=== PATIENT | female | born 1995 | race Caucasian/White ===

== ENCOUNTER 2017-03-11 15:26 | Emergency (ER) | payer MEDICARE, MEDICAID ==
--- NOTE | 2017-03-11 15:29 | EDM.PDOC ---
ED HPI Trauma - General Chief Complaint: Lower Extremity Injury/Pain Stated Complaint: hip pain [id number] Time Seen by Provider: 03/11/17 15:52 Source: Reports: Patient, RN, RN notes reviewed History Limitations: Reports: No limitations - History of Present Illness INITIAL COMMENTS - FREE TEXT/NARRATIVE: POD #20 S/P left total hip replacement just home from post-op rehab stay and felt a pop in posterior left hip and buttock with pain. Patient was able to walk last night, but today pain is much worse. Severity: severe Pain/Injury Location: Reports: lower extremity, left Associated Symptoms: Reports: no other symptoms Allergies/ADRs: Allergies erythromycin base [Erythromycin Base] Allergy (Verified 01/19/17 10:56) Anaphylactic Shock erythromycin ethylsuccinate [From Pediazole] Allergy (Verified 01/19/17 10:56) Anaphylactic Shock latex Allergy (Verified 01/19/17 10:56) Rash Sulfa (Sulfonamide Antibiotics) Allergy (Verified 01/19/17 10:56) Anaphylactic Shock sulfisoxazole acetyl [From Pediazole] Allergy (Verified 01/19/17 10:56) Anaphylactic Shock glutin Allergy (Uncoded 01/19/17 10:56) Nausea and Vomiting tape Allergy (Uncoded 01/19/17 10:56) Rash Home Medications: Ambulatory Orders Ondansetron [Zofran] 4 mg PO Q6H PRN 12/08/14 [Confirmed 01/19/17] Acetaminophen [Tylenol Extra Strength] 500 mg PO ASDIRECTED PRN 01/03/15 [ Confirmed 01/19/17] Naproxen Sodium 220 mg PO DAILY PRN 01/26/16 [Confirmed 01/19/17] Albuterol Sulfate 2.5 mg IH Q4HR PRN 11/26/16 [Confirmed 01/19/17] Baclofen [Baclofen] 10 mg PO PRN 03/11/17 Sertraline HCl [Sertraline HCl] 50 mg PO DAILY 03/11/17 [Confirmed 03/11/17] traMADol [Ultram] 50 mg PO PRN 03/11/17 Past Medical History HEENT History: Reports: Impaired vision, Other (see below) (strabismus) Other HEENT History: wears glasses Cardiovascular History: Reports: None Respiratory History: Reports: Asthma, Bronchitis, recurrent Gastrointestinal History: Reports: Bowel obstruction, Gastritis Genitourinary History: Reports: Pyelonephritis, UTI, recurrent, Other (see below ) (neurogenic bladder) Other Genitourinary History: neurogenic bladder with mitrofenoff procedure 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 Musculoskeletal History: Reports: Arthritis, Osteoarthritis Neurological History: Reports: Cerebral palsy, Seizure Psychiatric History: Reports: None, Anxiety Endocrine/Metabolic History: Reports: None, Obesity/BMI 30+ Hematologic History: Reports: Iron deficiency Immunologic History: Reports: None Oncologic (Cancer) History: Reports: Other (see below) Other Oncologic History: Melanoma Dermatologic History: Reports: Melanoma - Infectious Disease History Infectious Disease History: Reports: Chicken pox, Extended spectrum beta- lactamase (ESBL), Other (see below) Other Infectious Disease History: E coli bacteremia - Past Surgical History HEENT Surgical History: Reports: Eye surgery Respiratory Surgical History: Reports: None GI Surgical History: Reports: Appendectomy, EGD, Other (see below) Other GI Surgeries/Procedures: Surg for bowel obstruction Female Surgical History: Reports: None Musculoskeletal Surgical History: Reports: Other (see below) (left total hip replacement 02/19/17.) Other Musculoskeletal Surgeries/Procedures:: see old chart 4 polly hip rotations Social & Family History - Family History Family Medical History: Noncontributory Endocrine/Metabolic: Reports: Diabetes, type II Oncologic: Reports: Skin - Tobacco Use Smoking Status *Q: Never Smoker Second Hand Smoke Exposure: No - Alcohol Use Days Per Week of Alcohol Use: 0 - Recreational Drug Use Recreational Drug Use: No Review of Systems - Review of Systems Review Of Systems: ROS reveals no pertinent complaints other than HPI. Trauma Exam - Physical Exam Exam: See Below Exam Limited By: No limitations General Appearance: Reports: obese Respiratory Exam: Reports: no respiratory distress, lungs clear, normal breath sounds Cardiovascular: Reports: normal peripheral pulses Extremities: Reports: other (left hip with painful ROM, no bruising or swelling. 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, no motor/sensory deficits, alert , normal mood/affect, oriented x 3 Skin: Reports: Normal color, Warm/dry Course - Vital Signs Last Recorded V/S: Last Vital Signs Temp 37.2 C 03/11/17 15:40 Pulse 103 H 03/11/17 15:40 Resp 16 03/11/17 15:40 BP 144/71 H 03/11/17 15:40 Pulse Ox 99 03/11/17 15:40 - Orders/Labs/Meds Meds: Medications Discontinued Medications Generic Name Dose Route Start Last Admin Trade Name Noam PRN Reason Stop Dose Admin Hydromorphone HCl 1 mg 03/11/17 15:51 03/11/17 15:58 Dilaudid IM 03/11/17 15:52 1 mg ONETIME ONE Administration - Radiology Interpretation Free Text/Narrative:: X-ray left hip and pelvis: No acute findings, per rad report. Departure - Departure Time of Disposition: 17:02 Disposition: Home, Self-Care 01 Condition: good Clinical Impression: Acute postoperative pain of left hip Instructions: Hip Pain, Total Hip Replacement, Care After, [id number] Forms: ED Department Discharge Additional Instructions: Continue Tramadol as prescribed for pain. Follow up with your orthopedic surgeon if pain is not improved in 1 to 2 days.
[2017-03-11 15:46] VITALS: BP 144/71
[2017-03-11] MEDS ORDERED: HYDROmorphone 1 MG/ML Syringe IM ONE (15:51)
== END 2017-03-11 17:10 | disposition home or self-care (01) ==
LOC: DL.ED 15:26
DX: G89.18 Other acute postprocedural pain (principal); M25.552 Pain in left hip; J45.909 Unspecified asthma, uncomplicated; F41.9 Anxiety disorder, unspecified; E66.9 Obesity, unspecified; Z68.30 Body mass index [BMI] 30.0-30.9, adult; Z88.1 Allergy status to other antibiotic agents; Z88.2 Allergy status to sulfonamides; Z91.040 Latex allergy status; Z88.8 Allergy status to other drugs, medicaments and biological substances; Z87.440 Personal history of urinary (tract) infections; Z90.49 Acquired absence of other specified parts of digestive tract; Z98.890 Other specified postprocedural states
CPT/HCPCS: 73502; 96372; 99283; J1170; 99284

== ENCOUNTER 2017-07-28 22:59 | Emergency (ER) | payer MEDICARE, MEDICAID ==
--- NOTE | 2017-07-28 23:22 | EDM.PDOC ---
ED HPI GENERAL MEDICAL PROBLEM - General Chief Complaint: Genitourinary Problem Stated Complaint: UTI [id number] Time Seen by Provider: 07/28/17 23:20 Source of Information: Reports: Patient History Limitations: Reports: No Limitations - History of Present Illness INITIAL COMMENTS - FREE TEXT/NARRATIVE: 2 days h/o dysuria with h/o UTI. Right Lower Back Pain Score (Numeric/FACES): 6 - Related Data Allergies Allergy/AdvReac Type Severity Reaction Status Date / Time erythromycin base Allergy Anaphylactic Verified 07/28/17 23:25 [Erythromycin Base] Shock erythromycin ethylsuccinate Allergy Anaphylactic Verified 07/28/17 23:25 [From Pediazole] Shock latex Allergy Rash Verified 07/28/17 23:25 Sulfa (Sulfonamide Allergy Anaphylactic Verified 07/28/17 23:25 Antibiotics) Shock sulfisoxazole acetyl Allergy Anaphylactic Verified 07/28/17 23:25 [From Pediazole] Shock glutin Allergy Nausea and Uncoded 07/28/17 23:25 Vomiting tape Allergy Rash Uncoded 07/28/17 23:25 Home Meds: Home Meds Ondansetron [Zofran] 4 mg PO Q6H PRN 12/08/14 [History] Acetaminophen [Tylenol Extra Strength] 500 mg PO ASDIRECTED PRN 01/03/15 [ History] Naproxen Sodium 220 mg PO DAILY PRN 01/26/16 [History] Albuterol Sulfate 2.5 mg IH Q4HR PRN 11/26/16 [History] Baclofen [Baclofen] 10 mg PO QID PRN 03/11/17 [History] Sertraline HCl [Sertraline HCl] 50 mg PO DAILY 03/11/17 [History] traMADol [Ultram] 50 mg PO DAILY PRN 03/11/17 [History] Past Medical History HEENT History: Reports: Impaired Vision, Other (See Below) Other HEENT History: wears glasses Cardiovascular History: Reports: None Respiratory History: Reports: Asthma, Bronchitis, Recurrent Gastrointestinal History: Reports: Bowel Obstruction, Gastritis Genitourinary History: Reports: Pyelonephritis, UTI, Recurrent, Other (See Below ) Other Genitourinary History: neurogenic bladder with mitrofenoff procedure 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 Musculoskeletal History: Reports: Arthritis, Osteoarthritis Neurological History: Reports: Cerebral Palsy, Seizure Psychiatric History: Reports: None, Anxiety Endocrine/Metabolic History: Reports: None, Obesity/BMI 30+ Hematologic History: Reports: Iron Deficiency Immunologic History: Reports: None Oncologic (Cancer) History: Reports: Other (See Below) Other Oncologic History: Melanoma Dermatologic History: Reports: Melanoma - Infectious Disease History Infectious Disease History: Reports: Chicken Pox, Extended Spectrum Beta- Lactamase (ESBL), Other (See Below) Other Infectious Disease History: E coli bacteremia - Past Surgical History HEENT Surgical History: Reports: Eye Surgery GI Surgical History: Reports: Appendectomy, EGD, Other (See Below) Musculoskeletal Surgical History: Reports: Other (See Below) Social & Family History - Family History Family Medical History: Noncontributory Endocrine/Metabolic: Reports: Diabetes, type II Oncologic: Reports: Skin - Tobacco Use Smoking Status *Q: Never Smoker Second Hand Smoke Exposure: No - Caffeine Use Caffeine Use: Reports: Coffee, Soda - Alcohol Use Days Per Week of Alcohol Use: 0 - Recreational Drug Use Recreational Drug Use: No ED ROS GENERAL - Review of Systems Review Of Systems: ROS reveals no pertinent complaints other than HPI. ED EXAM, RENAL/ - Physical Exam Exam: See Below Exam Limited By: No Limitations General Appearance: Alert, WD/WN, Mild Distress, Other (discomfort) Ears: Hearing Grossly Normal Throat/Mouth: Normal Voice, No Airway Compromise Head: Atraumatic Neck: Non-Tender, Full Range of Motion Respiratory/Chest: No Respiratory Distress Cardiovascular: Regular Rate, Rhythm GI/Abdominal: Soft, Non-Tender Neurological: Alert, Oriented, Normal Cognition Psychiatric: Normal Affect, Normal Mood Skin Exam: Warm, Dry, Normal Color Lymphatic: No Adenopathy Course - Vital Signs Last Recorded V/S: Last Vital Signs Temp 36.0 C 07/28/17 23:18 Pulse 105 H 07/28/17 23:18 Resp 19 07/28/17 23:18 BP 142/87 H 07/28/17 23:18 Pulse Ox 99 07/28/17 23:18 - Orders/Labs/Meds Orders: Active Orders 24 hr Category Date Time Status Nitrofurantoin [place]/Macrocryst [Macrobid] Med 07/29/17 00:37 Once 100 mg PO ONETIME ONE Phenazopyridine [Urinary Pain Relief] Med 07/29/17 00:37 Once 95 mg PO ONETIME ONE Labs: Laboratory Tests 07/28/17 07/28/17 Range/Units 23:12 23:12 Urine Color Yellow (YELLOW) Urine Appearance Slightly cloudy (CLEAR) Urine pH 7.0 (5.0-9.0) Ur Specific [place] <= 1.005 (1.005-1.030) Urine Protein Negative (NEGATIVE) Urine Glucose (UA) Negative (NEGATIVE) Urine Ketones Negative (NEGATIVE) Urine Occult Blood Negative (NEGATIVE) Urine Nitrite Positive H (NEGATIVE) Urine Bilirubin Negative (NEGATIVE) Urine Urobilinogen 0.2 (0.2-1.0) mg/dL Ur Leukocyte Esterase Negative (NEGATIVE) Urine RBC Not seen /HPF Urine WBC 0-5 (0-5/HPF) /HPF Ur Epithelial Cells Rare /HPF Urine Bacteria Few (0-FEW/HPF) /HPF Urine HCG, Qual Negative - Re-Assessments/Exams Free Text/Narrative Re-Assessment/Exam: 07/29/17 00:38 results discussed with pt Departure - Departure Time of Disposition: 00:38 Disposition: Home, Self-Care 01 Condition: Good Clinical Impression: UTI, Urinary tract infectious disease - Discharge Information Instructions: Urinary Tract Infection, Adult, [id number] Forms: ED Department Discharge Additional Instructions: 1) drink lots of liquids 2) follow up with family doctor rx given; macrobid 100mg bid x 20 pyridium 100mg tid prn x 12 - My Orders Last 24 Hours: My Active Orders 07/29/17 00:37 Nitrofurantoin [place]/Macrocryst [Macrobid] 100 mg PO ONETIME ONE Phenazopyridine [Urinary Pain Relief] 95 mg PO ONETIME ONE - Assessment/Plan Last 24 Hours: My Active Orders 07/29/17 00:37 Nitrofurantoin [place]/Macrocryst [Macrobid] 100 mg PO ONETIME ONE Phenazopyridine [Urinary Pain Relief] 95 mg PO ONETIME ONE
[2017-07-28 23:25] VITALS: BP 142/87
[2017-07-29] MEDS ORDERED: Nitrofurantoin Monohydrate/Macrocrystalline 100 MG Cap PO ONE (00:37)
[2017-07-29] MEDS ORDERED: Phenazopyridine 95 MG Tab PO ONE (00:37)
== END 2017-07-29 00:56 | disposition home or self-care (01) ==
LOC: DL.ED 22:59
DX: N39.0 Urinary tract infection, site not specified (principal); J45.909 Unspecified asthma, uncomplicated; M19.90 Unspecified osteoarthritis, unspecified site; M81.0 Age-related osteoporosis without current pathological fracture; G80.9 Cerebral palsy, unspecified; F41.9 Anxiety disorder, unspecified; E66.9 Obesity, unspecified; Z85.820 Personal history of malignant melanoma of skin; Z90.49 Acquired absence of other specified parts of digestive tract; Z79.899 Other long term (current) drug therapy; Z88.1 Allergy status to other antibiotic agents; Z88.2 Allergy status to sulfonamides; Z91.040 Latex allergy status; Z91.048 Other nonmedicinal substance allergy status; Z68.30 Body mass index [BMI] 30.0-30.9, adult
CPT/HCPCS: 81001; 81025; 99283; A9270

== ENCOUNTER 2017-09-15 23:56 | Emergency (ER) | payer MEDICARE, MEDICAID ==
[2017-09-15] MEDS ORDERED: Nitrofurantoin Monohydrate/Macrocrystalline 100 MG Cap PO ONE (23:57)
[2017-09-16 00:06] VITALS: BP 161/82
[2017-09-16 01:13] LABS: CHLORIDE,CL 101 mmol/L (101-111); SODIUM,NA 133 mmol/L (135-145)
--- NOTE | 2017-09-16 01:18 | EDM.PDOC ---
ED HPI GENERAL MEDICAL PROBLEM - General Chief Complaint: Genitourinary Problem Stated Complaint: POSSIBLE UTI Time Seen by Provider: 09/16/17 00:32 Source of Information: Reports: Patient History Limitations: Reports: No Limitations - History of Present Illness INITIAL COMMENTS - FREE TEXT/NARRATIVE: c/o intermittent chills and bladder pain. Hx CP with neurogenic bladder, supra pubic intermittent self cath. Notes urine more concentrated and "gunky". Hx UTI and feels same as in past. 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) Bladder Pain Score (Numeric/FACES): 7 - Related Data Allergies Allergy/AdvReac Type Severity Reaction Status Date / Time erythromycin base Allergy Anaphylactic Verified 07/28/17 23:25 [Erythromycin Base] Shock erythromycin ethylsuccinate Allergy Anaphylactic Verified 07/28/17 23:25 [From Pediazole] Shock latex Allergy Rash Verified 07/28/17 23:25 Sulfa (Sulfonamide Allergy Anaphylactic Verified 07/28/17 23:25 Antibiotics) Shock sulfisoxazole acetyl Allergy Anaphylactic Verified 07/28/17 23:25 [From Pediazole] Shock glutin Allergy Nausea and Uncoded 07/28/17 23:25 Vomiting tape Allergy Rash Uncoded 07/28/17 23:25 Home Meds: Home Meds Ondansetron [Zofran] 4 mg PO Q6H PRN 12/08/14 [History] Acetaminophen [Tylenol Extra Strength] 500 mg PO ASDIRECTED PRN 01/03/15 [ History] Naproxen Sodium 220 mg PO DAILY PRN 01/26/16 [History] Albuterol Sulfate 2.5 mg IH Q4HR PRN 11/26/16 [History] Baclofen [Baclofen] 10 mg PO QID PRN 03/11/17 [History] Sertraline HCl [Sertraline HCl] 50 mg PO DAILY 03/11/17 [History] traMADol [Ultram] 50 mg PO DAILY PRN 03/11/17 [History] Past Medical History HEENT History: Reports: Impaired Vision, Other (See Below) Other HEENT History: wears glasses Cardiovascular History: Reports: None Respiratory History: Reports: Asthma, Bronchitis, Recurrent Gastrointestinal History: Reports: Bowel Obstruction, Gastritis Genitourinary History: Reports: Pyelonephritis, UTI, Recurrent, Other (See Below ) Other Genitourinary History: neurogenic bladder with mitrofenoff procedure 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 Musculoskeletal History: Reports: Arthritis, Osteoarthritis Neurological History: Reports: Cerebral Palsy, Seizure Psychiatric History: Reports: None, Anxiety Endocrine/Metabolic History: Reports: None, Obesity/BMI 30+ Hematologic History: Reports: Iron Deficiency Immunologic History: Reports: None Oncologic (Cancer) History: Reports: Other (See Below) Other Oncologic History: Melanoma Dermatologic History: Reports: Melanoma - Infectious Disease History Infectious Disease History: Reports: Chicken Pox, Extended Spectrum Beta- Lactamase (ESBL), Other (See Below) Other Infectious Disease History: E coli bacteremia - Past Surgical History HEENT Surgical History: Reports: Eye Surgery GI Surgical History: Reports: Appendectomy, EGD, Other (See Below) Musculoskeletal Surgical History: Reports: Other (See Below) Social & Family History - Family History Family Medical History: Noncontributory Endocrine/Metabolic: Reports: Diabetes, type II Oncologic: Reports: Skin - Tobacco Use Smoking Status *Q: Never Smoker Second Hand Smoke Exposure: No - Caffeine Use Caffeine Use: Reports: Soda - Alcohol Use Days Per Week of Alcohol Use: 0 - Recreational Drug Use Recreational Drug Use: No ED ROS GENERAL - Review of Systems Review Of Systems: See Below Constitutional: Reports: Chills HEENT: Reports: No Symptoms Respiratory: Reports: No Symptoms Cardiovascular: Reports: No Symptoms GI/Abdominal: Reports: Abdominal Pain : Reports: Frequency, Pain, Urinary Retention (chronic), Other (10weeks ). Denies: Flank Pain ED EXAM, RENAL/ - Physical Exam Exam: See Below Exam Limited By: Physical Impairment General Appearance: Alert, No Apparent Distress Throat/Mouth: Normal Voice Head: Atraumatic, Normocephalic Neck: Normal Inspection Respiratory/Chest: No Respiratory Distress, Lungs Clear GI/Abdominal: Soft Neurological: Alert, Oriented, Normal Cognition Psychiatric: Normal Affect, Normal Mood Skin Exam: Warm, Dry, Intact, Normal Color Course - Vital Signs Last Recorded V/S: Last Vital Signs Temp 98.9 F 09/16/17 00:05 Pulse 98 09/16/17 00:05 Resp 16 09/16/17 00:05 BP 161/82 H 09/16/17 00:05 Pulse Ox 98 09/16/17 00:05 - Orders/Labs/Meds Orders: Active Orders 24 hr Category Date Time Status CULTURE URINE [RM] Stat Lab 09/16/17 00:01 Received Labs: Laboratory Tests 09/16/17 09/16/17 09/16/17 Range/Units 00:01 00:43 00:43 WBC 9.1 (5.0-10.0) 10^3/uL RBC 4.69 (4.2-5.4) 10^6/uL Hgb 14.3 (12.0-16.0) g/dL Hct 42.0 (37.0-47.0) % MCV 89.6 (80-100) fL MCH 30.5 (27.0-34.0) pg MCHC 34.0 (33.0-35.0) g/dL Plt Count 227 (150-450) 10^3/uL Neut % (Auto) 58.1 (42.2-75.2) % Lymph % (Auto) 32.0 (20.5-50.1) % [place] % (Auto) 8.3 H (2-8) % Eos % (Auto) 1.4 (1.0-3.0) % Baso % (Auto) 0.2 (0.0-1.0) % Sodium 133 L (135-145) mmol/L Potassium 3.6 (3.6-5.0) mmol/L Chloride 101 (101-111) mmol/L Carbon Dioxide 24.0 (21.0-31.0) mmol/L Anion Gap 11.6 BUN 7 (7-18) mg/dL Creatinine 0.5 L (0.6-1.3) mg/dL Est Cr Clr Drug Dosing 147.93 mL/min Estimated GFR (MDRD) > 60 BUN/Creatinine Ratio 14.00 Glucose 101 (74-105) mg/dL Lactic Acid (0.5-2.2) mmol/L Calcium 9.3 (8.4-10.2) mg/dl Total Bilirubin 0.6 (0.2-1.0) mg/dL AST 20 (10-42) IU/L ALT 14 (10-60) IU/L Alkaline Phosphatase 33 L (42-121) IU/L Total Protein 6.9 (6.7-8.2) g/dl Albumin 4.2 (3.2-5.5) g/dl Globulin 2.7 Albumin/Globulin Ratio 1.56 Urine Color [place] (YELLOW) Urine Appearance Turbid (CLEAR) Urine pH 5.0 (5.0-9.0) Ur Specific [place] 1.020 (1.005-1.030) Urine Protein 100 H (NEGATIVE) Urine Glucose (UA) 250 H (NEGATIVE) Urine Ketones Trace H (NEGATIVE) Urine Occult Blood Trace-lysed H (NEGATIVE) Urine Nitrite Positive H (NEGATIVE) Urine Bilirubin Small H (NEGATIVE) Urine Urobilinogen 4.0 H (0.2-1.0) mg/dL Ur Leukocyte Esterase Large H (NEGATIVE) Urine RBC 10-20 H /HPF Urine WBC 40-50 H (0-5/HPF) /HPF Ur Epithelial Cells Few /HPF Urine Bacteria Few (0-FEW/HPF) /HPF Urine Mucus Many H /LPF 09/16/17 Range/Units 00:43 WBC (5.0-10.0) 10^3/uL RBC (4.2-5.4) 10^6/uL Hgb (12.0-16.0) g/dL Hct (37.0-47.0) % MCV (80-100) fL MCH (27.0-34.0) pg MCHC (33.0-35.0) g/dL Plt Count (150-450) 10^3/uL Neut % (Auto) (42.2-75.2) % Lymph % (Auto) (20.5-50.1) % [place] % (Auto) (2-8) % Eos % (Auto) (1.0-3.0) % Baso % (Auto) (0.0-1.0) % Sodium (135-145) mmol/L Potassium (3.6-5.0) mmol/L Chloride (101-111) mmol/L Carbon Dioxide (21.0-31.0) mmol/L Anion Gap BUN (7-18) mg/dL Creatinine (0.6-1.3) mg/dL Est Cr Clr Drug Dosing mL/min Estimated GFR (MDRD) BUN/Creatinine Ratio Glucose (74-105) mg/dL Lactic Acid 1.2 (0.5-2.2) mmol/L Calcium (8.4-10.2) mg/dl Total Bilirubin (0.2-1.0) mg/dL AST (10-42) IU/L ALT (10-60) IU/L Alkaline Phosphatase (42-121) IU/L Total Protein (6.7-8.2) g/dl Albumin (3.2-5.5) g/dl Globulin Albumin/Globulin Ratio Urine Color (YELLOW) Urine Appearance (CLEAR) Urine pH (5.0-9.0) Ur Specific [place] (1.005-1.030) Urine Protein (NEGATIVE) Urine Glucose (UA) (NEGATIVE) Urine Ketones (NEGATIVE) Urine Occult Blood (NEGATIVE) Urine Nitrite (NEGATIVE) Urine Bilirubin (NEGATIVE) Urine Urobilinogen (0.2-1.0) mg/dL Ur Leukocyte Esterase (NEGATIVE) Urine RBC /HPF Urine WBC (0-5/HPF) /HPF Ur Epithelial Cells /HPF Urine Bacteria (0-FEW/HPF) /HPF Urine Mucus /LPF Departure - Departure Time of Disposition: : Disposition: Home, Self-Care 01 Condition: Good Clinical Impression: UTI, Urinary tract infectious disease - Discharge Information Instructions: Urinary Tract Infection, Adult, [id number] Forms: ED Department Discharge Additional Instructions: Macrobid 100mg one twice daily for 10 days increase fluids follow up with primary care this week - My Orders Last 24 Hours: My Active Orders 09/16/17 00:01 CULTURE URINE [RM] Stat - Assessment/Plan Last 24 Hours: My Active Orders 09/16/17 00:01 CULTURE URINE [RM] Stat
[2017-09-16] MEDS ORDERED: Nitrofurantoin Monohydrate/Macrocrystalline 100 MG Cap ONE (01:22)
== END 2017-09-16 01:25 | disposition home or self-care (01) ==
LOC: DL.ED 23:56
DX: N39.0 Urinary tract infection, site not specified (principal); Z88.1 Allergy status to other antibiotic agents; Z91.040 Latex allergy status; Z88.2 Allergy status to sulfonamides; Z79.899 Other long term (current) drug therapy
CPT/HCPCS: 36415; 80053; 81001; 83605; 85025; 87086; 87088; 87186; 99283; A9270-GY

== ENCOUNTER 2017-09-27 18:20 | Emergency (ER) | payer MEDICARE, MEDICAID ==
[2017-09-27 19:01] LABS: CHLORIDE,CL 103 mmol/L (101-111); SODIUM,NA 137 mmol/L (135-145)
--- NOTE | 2017-09-27 19:03 | EDM.PDOC ---
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 had few weeks ago and recent U.S normal. started pink discharge this am, turned brown then tonight bloody. on first pad presently. denies cramps, no pain anywhere. - Related Data Allergies Allergy/AdvReac Type Severity Reaction Status Date / Time erythromycin base Allergy Anaphylactic Verified 09/27/17 18:32 [Erythromycin Base] Shock erythromycin ethylsuccinate Allergy Anaphylactic Verified 09/27/17 18:32 [From Pediazole] Shock latex Allergy Rash Verified 09/27/17 18:32 Sulfa (Sulfonamide Allergy Anaphylactic Verified 09/27/17 18:32 Antibiotics) Shock sulfisoxazole acetyl Allergy Anaphylactic Verified 09/27/17 18:32 [From Pediazole] Shock glutin Allergy Nausea and Uncoded 09/27/17 18:32 Vomiting tape Allergy Rash Uncoded 09/27/17 18:32 Home Meds: Home Meds Ondansetron [Zofran] 4 mg PO Q6H PRN 12/08/14 [History] Acetaminophen [Tylenol Extra Strength] 500 mg PO ASDIRECTED PRN 01/03/15 [ History] Naproxen Sodium 220 mg PO DAILY PRN 01/26/16 [History] Albuterol Sulfate 2.5 mg IH Q4HR PRN 11/26/16 [History] Baclofen [Baclofen] 10 mg PO QID PRN 03/11/17 [History] Sertraline HCl [Sertraline HCl] 50 mg PO DAILY 03/11/17 [History] traMADol [Ultram] 50 mg PO DAILY PRN 03/11/17 [History] Acetaminophen [Tylenol Arthritis Pain] 09/27/17 [History] Prenat Vit Comb.10/Iron/Fa/Dha [Vitafol-OB + DHA] 09/27/17 [History] Past Medical History HEENT History: Reports: Impaired Vision, Other (See Below) Other HEENT History: wears glasses Cardiovascular History: Reports: None Respiratory History: Reports: Asthma, Bronchitis, Recurrent Gastrointestinal History: Reports: Bowel Obstruction, Gastritis Genitourinary History: Reports: Pyelonephritis, UTI, Recurrent, Other (See Below ) Other Genitourinary History: neurogenic bladder with mitrofenoff procedure 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 History: Reports: None Musculoskeletal History: Reports: Arthritis, Osteoarthritis Neurological History: Reports: Cerebral Palsy, Seizure Psychiatric History: Reports: None, Anxiety Endocrine/Metabolic History: Reports: None Hematologic History: Reports: Iron Deficiency Immunologic History: Reports: None Oncologic (Cancer) History: Reports: Other (See Below) Other Oncologic History: Melanoma Dermatologic History: Reports: Melanoma - Infectious Disease History Infectious Disease History: Reports: Chicken Pox, Extended Spectrum Beta- Lactamase (ESBL), Other (See Below) Other Infectious Disease History: E coli bacteremia - Past Surgical History HEENT Surgical History: Reports: Eye Surgery, Myringotomy w Tube(s) GI Surgical History: Reports: Appendectomy, EGD, Other (See Below) Other GI Surgeries/Procedures: Catheter Navel Musculoskeletal Surgical History: Reports: Hip Replacement, Other (See Below) Other Musculoskeletal Surgeries/Procedures:: Multiple hip surgeries Social & Family History - Family History Family Medical History: Noncontributory Endocrine/Metabolic: Reports: Diabetes, type II Oncologic: Reports: Skin - Tobacco Use Smoking Status *Q: Never Smoker Second Hand Smoke Exposure: No - Caffeine Use Caffeine Use: Reports: None - Alcohol Use Days Per Week of Alcohol Use: 0 - Recreational Drug Use Recreational Drug Use: No ED ROS GENERAL - Review of Systems Review Of Systems: ROS reveals no pertinent complaints other than HPI. ED EXAM - Physical Exam Exam: See Below Exam Limited By: No Limitations General Appearance: Alert, WD/WN, No Apparent Distress Ears: Hearing Grossly Normal Throat/Mouth: Normal Voice, No Airway Compromise Head: Atraumatic Neck: Non-Tender, Full Range of Motion Respiratory/Chest: No Respiratory Distress Cardiovascular: Regular Rate, Rhythm GI/Abdominal Exam: Soft, Non-Tender Neurological: Alert, Oriented, Normal Cognition, Normal Gait, No Motor/Sensory Deficits Psychiatric: Normal Affect, Normal Mood Skin Exam: Warm, Dry, Normal Color Lymphatic: No Adenopathy Course - Vital Signs Last Recorded V/S: Last Vital Signs Temp 37.2 C 09/27/17 20:13 Pulse 107 H 09/27/17 20:13 Resp 18 09/27/17 20:13 BP 131/78 09/27/17 20:13 Pulse Ox 96 09/27/17 20:13 - Orders/Labs/Meds Orders: Active Orders 24 hr Category Date Time Status OB Ltd 1 or More Fetus [US] Urgent Exams 09/27/17 20:20 Taken CULTURE URINE [RM] Stat Lab 09/27/17 18:31 Received Acetaminophen/HYDROcodone [Salvo 325-10 MG] Med 09/27/17 21:34 Once 1 tab PO ONETIME ONE Labs: Laboratory Tests 09/27/17 09/27/17 09/27/17 Range/Units 18:31 18:35 18:35 WBC 8.7 (5.0-10.0) 10^3/uL RBC 4.74 (4.2-5.4) 10^6/uL Hgb 14.2 (12.0-16.0) g/dL Hct 41.7 (37.0-47.0) % MCV 88.0 (80-100) fL MCH 30.0 (27.0-34.0) pg MCHC 34.1 (33.0-35.0) g/dL Plt Count 212 (150-450) 10^3/uL Neut % (Auto) 59.4 (42.2-75.2) % Lymph % (Auto) 31.9 (20.5-50.1) % [place] % (Auto) 7.5 (2-8) % Eos % (Auto) 1.0 (1.0-3.0) % Baso % (Auto) 0.2 (0.0-1.0) % Sodium (135-145) mmol/L Potassium (3.6-5.0) mmol/L Chloride (101-111) mmol/L Carbon Dioxide (21.0-31.0) mmol/L Anion Gap BUN (7-18) mg/dL Creatinine (0.6-1.3) mg/dL Est Cr Clr Drug Dosing mL/min Estimated GFR (MDRD) BUN/Creatinine Ratio Glucose (74-105) mg/dL Calcium (8.4-10.2) mg/dl Total Bilirubin (0.2-1.0) mg/dL AST (10-42) IU/L ALT (10-60) IU/L Alkaline Phosphatase (42-121) IU/L Total Protein (6.7-8.2) g/dl Albumin (3.2-5.5) g/dl Globulin Albumin/Globulin Ratio HCG, Quant > 1371 H (0-25) mIU/ml Beta HCG, Quant 12325 mIU/ml Urine Color Yellow (YELLOW) Urine Appearance Slightly cloudy (CLEAR) Urine pH 6.5 (5.0-9.0) Ur Specific [place] 1.015 (1.005-1.030) Urine Protein Negative (NEGATIVE) Urine Glucose (UA) Negative (NEGATIVE) Urine Ketones Negative (NEGATIVE) Urine Occult Blood Trace-lysed H (NEGATIVE) Urine Nitrite Negative (NEGATIVE) Urine Bilirubin Negative (NEGATIVE) Urine Urobilinogen 0.2 (0.2-1.0) mg/dL Ur Leukocyte Esterase Negative (NEGATIVE) Urine RBC 0-5 /HPF Urine WBC 0-5 (0-5/HPF) /HPF Ur Epithelial Cells Few /HPF Urine Bacteria Many H (0-FEW/HPF) /HPF Urine Mucus Few H /LPF 09/27/ Range/Units 18:35 WBC (5.0-10.0) 10^3/uL RBC (4.2-5.4) 10^6/uL Hgb (12.0-16.0) g/dL Hct (37.0-47.0) % MCV (80-100) fL MCH (27.0-34.0) pg MCHC (33.0-35.0) g/dL Plt Count (150-450) 10^3/uL Neut % (Auto) (42.2-75.2) % Lymph % (Auto) (20.5-50.1) % [place] % (Auto) (2-8) % Eos % (Auto) (1.0-3.0) % Baso % (Auto) (0.0-1.0) % Sodium 137 (135-145) mmol/L Potassium 3.3 L (3.6-5.0) mmol/L Chloride 103 (101-111) mmol/L Carbon Dioxide 20.0 L (21.0-31.0) mmol/L Anion Gap 17.3 BUN 10 (7-18) mg/dL Creatinine 0.7 (0.6-1.3) mg/dL Est Cr Clr Drug Dosing 107.01 mL/min Estimated GFR (MDRD) > 60 BUN/Creatinine Ratio 14.28 Glucose 116 H (74-105) mg/dL Calcium 9.5 (8.4-10.2) mg/dl Total Bilirubin 0.4 (0.2-1.0) mg/dL AST 25 (10-42) IU/L ALT 17 (10-60) IU/L Alkaline Phosphatase 35 L (42-121) IU/L Total Protein 7.3 (6.7-8.2) g/dl Albumin 4.1 (3.2-5.5) g/dl Globulin 3.2 Albumin/Globulin Ratio 1.28 HCG, Quant (0-25) mIU/ml Beta HCG, Quant mIU/ml Urine Color (YELLOW) Urine Appearance (CLEAR) Urine pH (5.0-9.0) Ur Specific [place] (1.005-1.030) Urine Protein (NEGATIVE) Urine Glucose (UA) (NEGATIVE) Urine Ketones (NEGATIVE) Urine Occult Blood (NEGATIVE) Urine Nitrite (NEGATIVE) Urine Bilirubin (NEGATIVE) Urine Urobilinogen (0.2-1.0) mg/dL Ur Leukocyte Esterase (NEGATIVE) Urine RBC /HPF Urine WBC (0-5/HPF) /HPF Ur Epithelial Cells /HPF Urine Bacteria (0-FEW/HPF) /HPF Urine Mucus /LPF Meds: Medications Discontinued Medications Generic Name Dose Route Start Last Admin Trade Name Jarethq PRN Reason Stop Dose Admin Acetaminophen 325 mg 09/27/17 21:03 09/27/17 21:16 Tylenol PO 09/27/17 21:04 325 mg NOW ONE Administration - Re-Assessments/Exams Free Text/Narrative Re-Assessment/Exam: 09/27/17 20:12 re-exam; pt has no c/o except soaking one pad. case discussed with Dr Rincon who rec' OB-US to check foetal viability. 09/27/17 21:34 results discussed with pt & family. Departure - Departure Time of Disposition: 21:35 Disposition: Home, Self-Care 01 Condition: Good Clinical Impression: Incomplete - Discharge Information Instructions: Miscarriage, [id number] Forms: ED Department Discharge Additional Instructions: 1) rest as much as possible 2) notify OB doctor tomorrow 3) recheck as needed - My Orders Last 24 Hours: My Active Orders 09/27/17 18:31 CULTURE URINE [RM] Stat 09/27/17 20:20 OB Ltd 1 or More Fetus [US] Urgent 09/27/17 21:34 Acetaminophen/HYDROcodone [Salvo 325-10 MG] 1 tab PO ONETIME ONE - Assessment/Plan Last 24 Hours: My Active Orders 09/27/17 18:31 CULTURE URINE [RM] Stat 09/27/17 20:20 OB Ltd 1 or More Fetus [US] Urgent 09/27/17 21:34 Acetaminophen/HYDROcodone [Salvo 325-10 MG] 1 tab PO ONETIME ONE
[2017-09-27 20:14] VITALS: BP 131/78
[2017-09-27] MEDS ORDERED: Acetaminophen 325 MG Tab PO ONE (21:03)
[2017-09-27] MEDS ORDERED: Acetaminophen/HYDROcodone 325-10 MG Tab PO ONE (21:34)
== END 2017-09-27 21:47 | disposition home or self-care (01) ==
LOC: DL.ED 18:20
DX: O03.4 Incomplete spontaneous abortion without complication (principal); O99.511 Diseases of the respiratory system complicating pregnancy, first trimester; J45.909 Unspecified asthma, uncomplicated; Z79.899 Other long term (current) drug therapy; Z88.1 Allergy status to other antibiotic agents; Z88.2 Allergy status to sulfonamides; Z88.8 Allergy status to other drugs, medicaments and biological substances; Z91.048 Other nonmedicinal substance allergy status; Z91.040 Latex allergy status; Z3A.09 9 weeks gestation of pregnancy
CPT/HCPCS: 36415; 76815; 80053; 81001; 84702; 85025; 87086; 99284; A9270; 99283

== ENCOUNTER 2017-09-29 00:35 | Emergency (ER) | payer MEDICARE, MEDICAID ==
--- NOTE | 2017-09-29 00:44 | EDM.PDOC ---
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 Lower Back Pain Score (Numeric/FACES): 8 - Related Data Allergies Allergy/AdvReac Type Severity Reaction Status Date / Time erythromycin base Allergy Anaphylactic Verified 09/27/17 18:32 [Erythromycin Base] Shock erythromycin ethylsuccinate Allergy Anaphylactic Verified 09/27/17 18:32 [From Pediazole] Shock latex Allergy Rash Verified 09/27/17 18:32 Sulfa (Sulfonamide Allergy Anaphylactic Verified 09/27/17 18:32 Antibiotics) Shock sulfisoxazole acetyl Allergy Anaphylactic Verified 09/27/17 18:32 [From Pediazole] Shock glutin Allergy Nausea and Uncoded 09/27/17 18:32 Vomiting tape Allergy Rash Uncoded 09/27/17 18:32 Home Meds: Home Meds Ondansetron [Zofran] 4 mg PO Q6H PRN 12/08/14 [History] Acetaminophen [Tylenol Extra Strength] 500 mg PO ASDIRECTED PRN 01/03/15 [ History] Naproxen Sodium 220 mg PO DAILY PRN 01/26/16 [History] Albuterol Sulfate 2.5 mg IH Q4HR PRN 11/26/16 [History] Baclofen [Baclofen] 10 mg PO QID PRN 03/11/17 [History] Sertraline HCl [Sertraline HCl] 50 mg PO DAILY 03/11/17 [History] traMADol [Ultram] 50 mg PO DAILY PRN 03/11/17 [History] Acetaminophen [Tylenol Arthritis Pain] 09/27/17 [History] Prenat Vit Comb.10/Iron/Fa/Dha [Vitafol-OB + DHA] 09/27/17 [History] Past Medical History HEENT History: Reports: Impaired Vision, Other (See Below) Other HEENT History: wears glasses Cardiovascular History: Reports: None Respiratory History: Reports: Asthma, Bronchitis, Recurrent Gastrointestinal History: Reports: Bowel Obstruction, Gastritis Genitourinary History: Reports: Pyelonephritis, UTI, Recurrent, Other (See Below ) Other Genitourinary History: neurogenic bladder with mitrofenoff procedure 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 Musculoskeletal History: Reports: Arthritis, Osteoarthritis Neurological History: Reports: Cerebral Palsy, Seizure Psychiatric History: Reports: None, Anxiety Endocrine/Metabolic History: Reports: None Hematologic History: Reports: Iron Deficiency Immunologic History: Reports: None Oncologic (Cancer) History: Reports: Other (See Below) Other Oncologic History: Melanoma Dermatologic History: Reports: Melanoma - Infectious Disease History Infectious Disease History: Reports: Chicken Pox, Extended Spectrum Beta- Lactamase (ESBL), Other (See Below) Other Infectious Disease History: E coli bacteremia - Past Surgical History HEENT Surgical History: Reports: Eye Surgery, Myringotomy w Tube(s) GI Surgical History: Reports: Appendectomy, EGD, Other (See Below) Other GI Surgeries/Procedures: Catheter Navel Musculoskeletal Surgical History: Reports: Hip Replacement, Other (See Below) Other Musculoskeletal Surgeries/Procedures:: Multiple hip surgeries Social & Family History - Family History Family Medical History: Noncontributory Endocrine/Metabolic: Reports: Diabetes, type II Oncologic: Reports: Skin - Tobacco Use Smoking Status *Q: Never Smoker Second Hand Smoke Exposure: No - Caffeine Use Caffeine Use: Reports: None - Alcohol Use Days Per Week of Alcohol Use: 0 - Recreational Drug Use Recreational Drug Use: No ED ROS GENERAL - Review of Systems Review Of Systems: ROS reveals no pertinent complaints other than HPI. ED EXAM - Physical Exam Exam: See Below Exam Limited By: No Limitations General Appearance: Alert, WD/WN, Mild Distress, Moderate Distress, Other (vag bleeidng & cramps) Ears: Hearing Grossly Normal Throat/Mouth: Normal Voice, No Airway Compromise Head: Atraumatic Neck: Non-Tender, Full Range of Motion Respiratory/Chest: No Respiratory Distress Cardiovascular: Regular Rate, Rhythm GI/Abdominal Exam: Tender, Other (suprapub) (Female) Exam: Vaginal Bleeding, Other (minimal oozing, minimal clot,) Neurological: Alert, Oriented, Normal Cognition, No Motor/Sensory Deficits Psychiatric: Anxious Skin Exam: Warm, Dry, Normal Color Lymphatic: No Adenopathy Course - Vital Signs Last Recorded V/S: Last Vital Signs Temp 37.0 C 09/29/17 02:04 Pulse 91 09/29/17 02:04 Resp 18 09/29/17 02:04 BP 137/87 09/29/17 02:04 Pulse Ox 99 09/29/17 02:04 - Orders/Labs/Meds Orders: Active Orders 24 hr Category Date Time Status OB Ltd 1 or More Fetus [US] Urgent Exams 09/29/17 02:20 Ordered Labs: Laboratory Tests 09/29/17 09/29/17 Range/Units 01:12 01:12 WBC 8.0 (5.0-10.0) 10^3/uL RBC 4.54 (4.2-5.4) 10^6/uL Hgb 13.7 (12.0-16.0) g/dL Hct 40.2 (37.0-47.0) % MCV 88.5 (80-100) fL MCH 30.2 (27.0-34.0) pg MCHC 34.1 (33.0-35.0) g/dL Plt Count 204 (150-450) 10^3/uL Neut % (Auto) 53.6 (42.2-75.2) % Lymph % (Auto) 35.2 (20.5-50.1) % [place] % (Auto) 9.5 H (2-8) % Eos % (Auto) 1.4 (1.0-3.0) % Baso % (Auto) 0.3 (0.0-1.0) % Sodium 138 (135-145) mmol/L Potassium 3.5 L (3.6-5.0) mmol/L Chloride 105 (101-111) mmol/L Carbon Dioxide 22.0 (21.0-31.0) mmol/L Anion Gap 14.5 BUN 6 L (7-18) mg/dL Creatinine 0.5 L (0.6-1.3) mg/dL Est Cr Clr Drug Dosing 137.22 mL/min Estimated GFR (MDRD) > 60 BUN/Creatinine Ratio 12.00 Glucose 91 (74-105) mg/dL Calcium 9.0 (8.4-10.2) mg/dl Total Bilirubin 0.8 (0.2-1.0) mg/dL AST 19 (10-42) IU/L ALT 16 (10-60) IU/L Alkaline Phosphatase 36 L (42-121) IU/L Total Protein 7.1 (6.7-8.2) g/dl Albumin 4.1 (3.2-5.5) g/dl Globulin 3.0 Albumin/Globulin Ratio 1.37 Meds: Medications Discontinued Medications Generic Name Dose Route Start Last Admin Trade Name Noam PRN Reason Stop Dose Admin Sodium Chloride 1,000 mls @ 500 mls/hr 09/29/17 01:00 09/29/17 01:17 Normal Saline IV 09/29/17 02:59 500 mls/hr .BOLUS ONE Administration Morphine Sulfate 2 mg 09/29/17 01:01 09/29/17 01:16 Morphine IVPUSH 09/29/17 01:02 2 mg ONETIME ONE Administration Morphine Sulfate 2 mg 09/29/17 02:29 09/29/17 02:34 Morphine IVPUSH 09/29/17 02:30 2 mg ONETIME ONE Administration Morphine Sulfate 4 mg 09/29/17 03:12 09/29/17 03:15 Morphine IVPUSH 09/29/17 03:13 4 mg ONETIME ONE Administration Ondansetron HCl 4 mg 09/29/17 01:00 09/29/17 01:16 Zofran IV 09/29/17 01:01 4 mg ONETIME ONE Administration Ondansetron HCl 4 mg 09/29/17 02:29 09/29/17 03:04 Zofran IV 09/29/17 02:30 4 mg ONETIME ONE Administration - Re-Assessments/Exams Free Text/Narrative Re-Assessment/Exam: 09/29/17 02:[address] Villa @ who req' repeat US to determine whether there is anything left for D&C. 09/29/17 03:[address] Villa who req' pt to be sent to -ER. Departure - Departure Time of Disposition: 03:33 Disposition: DC/Tfer to Acute Hospital 02 Condition: Good Clinical Impression: Threatened - Discharge Information Forms: Interfacility Transfer EMTALA - My Orders Last 24 Hours: My Active Orders 09/29/17 02:20 OB Ltd 1 or More Fetus [US] Urgent - Assessment/Plan Last 24 Hours: My Active Orders 09/29/17 02:20 OB Ltd 1 or More Fetus [US] Urgent
[2017-09-29] MEDS ORDERED: Ondansetron 4 MG/2 ML SDV IV ONE ×2 (01:00→02:29)
[2017-09-29] MEDS ORDERED: Sodium Chloride 0.9% 1,000 ML IV ONE (01:00)
[2017-09-29] MEDS ORDERED: Morphine 2 MG/ML Syringe IVPUSH ONE ×2 (01:01→02:29)
[2017-09-29 01:39] LABS: CHLORIDE,CL 105 mmol/L (101-111); SODIUM,NA 138 mmol/L (135-145)
[2017-09-29 02:05] VITALS: BP 137/87
[2017-09-29] MEDS ORDERED: Morphine 4 MG/ML Syringe IVPUSH ONE (03:12)
[2017-09-29] MEDS ORDERED: Sodium Chloride 0.9% 1,000 ML IV SCH (04:00)
== END 2017-09-29 04:15 ==
LOC: DL.ED 00:35
DX: O20.0 Threatened abortion (principal); Z88.1 Allergy status to other antibiotic agents; Z88.2 Allergy status to sulfonamides; Z91.040 Latex allergy status; Z79.899 Other long term (current) drug therapy
CPT/HCPCS: 36415; 76815; 80053; 85025; 96361; 96374; 96375; 96376; 99285; J2270; J2405; J7030

== ENCOUNTER 2018-03-26 19:22 | Emergency (ER) | payer MEDICAID ==
[2018-03-26 19:56] VITALS: BP 129/76
[2018-03-26] MEDS ORDERED: Sodium Chloride 0.9% 1,000 ML IV ONE (20:38)
[2018-03-26] MEDS ORDERED: Metoclopramide Oral Soln 10 MG/10 ML UD Cup PO ONE (21:10)
[2018-03-26] MEDS ORDERED: Morphine 10 MG/ML Syringe IVPUSH ONE (21:11)
[2018-03-26] MEDS ORDERED: Metoclopramide 10 MG/2 ML SDV IVPUSH ONE (21:21)
[2018-03-26 21:31] LABS: CHLORIDE,CL 105 mmol/L (101-111); SODIUM,NA 136 mmol/L (135-145)
--- NOTE | 2018-03-26 21:40 | EDM.PDOC ---
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 Estimates 11 weeks pg. though states LMP 4/11. , First miscarriage at approximately 9 weeks. Was scheduled to see OB on . Nause and vomiting x 1. Medical hx Spina Bifida. First miscarriage required emergency D&C due to retained products. Lower Back Pain Score (Numeric/FACES): 8 - Related Data Allergies Allergy/AdvReac Type Severity Reaction Status Date / Time erythromycin base Allergy Anaphylactic Verified 03/26/18 19:56 [Erythromycin Base] Shock erythromycin ethylsuccinate Allergy Anaphylactic Verified 03/26/18 19:56 [From Pediazole] Shock latex Allergy Rash Verified 03/26/18 19:56 Sulfa (Sulfonamide Allergy Anaphylactic Verified 03/26/18 19:56 Antibiotics) Shock sulfisoxazole acetyl Allergy Anaphylactic Verified 03/26/18 19:56 [From Pediazole] Shock glutin Allergy Nausea and Uncoded 03/26/18 19:56 Vomiting tape Allergy Rash Uncoded 03/26/18 19:56 Home Meds: Home Meds Acetaminophen [Tylenol Extra Strength] 1,000 mg PO ASDIRECTED PRN 01/03/15 [ History] Albuterol Sulfate 2.5 mg IH Q4HR PRN 11/26/16 [History] Prenat Vit Comb.10/Iron/Fa/Dha [Vitafol-OB + DHA] 1 tab PO DAILY 09/27/17 [ History] Past Medical History HEENT History: Reports: Impaired Vision, Other (See Below) Other HEENT History: wears glasses Cardiovascular History: Reports: None Respiratory History: Reports: Asthma, Bronchitis, Recurrent Gastrointestinal History: Reports: Bowel Obstruction, Gastritis Genitourinary History: Reports: Pyelonephritis, UTI, Recurrent, Other (See Below ) Other Genitourinary History: neurogenic bladder with mitrofenoff procedure 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: , 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 Musculoskeletal History: Reports: Arthritis, Osteoarthritis Neurological History: Reports: Cerebral Palsy, Seizure Psychiatric History: Reports: Anxiety Endocrine/Metabolic History: Reports: None Hematologic History: Reports: Iron Deficiency Immunologic History: Reports: None Oncologic (Cancer) History: Reports: Other (See Below) Other Oncologic History: Melanoma Dermatologic History: Reports: Melanoma - Infectious Disease History Infectious Disease History: Reports: Chicken Pox, Extended Spectrum Beta- Lactamase (ESBL), Other (See Below) Other Infectious Disease History: E coli bacteremia - Past Surgical History HEENT Surgical History: Reports: Eye Surgery, Myringotomy w Tube(s) GI Surgical History: Reports: Appendectomy, EGD, Other (See Below) Other GI Surgeries/Procedures: Catheter Navel Female Surgical History: Reports: D&C Neurological Surgical History: Reports: None Musculoskeletal Surgical History: Reports: Hip Replacement, Other (See Below) Other Musculoskeletal Surgeries/Procedures:: Multiple hip surgeries Oncologic Surgical History: Reports: None Social & Family History - Family History Family Medical History: Noncontributory Endocrine/Metabolic: Reports: Diabetes, type II Oncologic: Reports: Skin - Tobacco Use Smoking Status *Q: Unknown Ever Smoked - Caffeine Use Caffeine Use: Reports: None - Recreational Drug Use Recreational Drug Use: No ED ROS GENERAL - Review of Systems Review Of Systems: ROS reveals no pertinent complaints other than HPI. ED EXAM - Physical Exam Exam: See Below Exam Limited By: No Limitations General Appearance: Alert, Anxious Eye Exam: Bilateral Eye: EOMI Ears: Normal External Exam Nose: Normal Inspection Throat/Mouth: Normal Inspection Head: Atraumatic, Normocephalic Neck: Normal Inspection Respiratory/Chest: No Respiratory Distress, Lungs Clear Cardiovascular: Normal Peripheral Pulses, Regular Rate, Rhythm GI/Abdominal Exam: Normal Bowel Sounds, Soft (Female) Exam: Vaginal Bleeding (active dark red vaginal bleeding, cervix not visulaized. ) Extremities: Other Neurological: Alert, Oriented, Normal Cognition, Other (spina bifida, limited movement lower.) Skin Exam: Warm, Dry, Intact, Normal Color Course - Vital Signs Last Recorded V/S: Last Vital Signs Temp 99.1 F 03/26/18 19:52 Pulse 95 03/26/18 19:52 Resp 20 03/26/18 19:52 BP 129/76 03/26/18 19:52 Pulse Ox 100 03/26/18 19:52 - Orders/Labs/Meds Labs: Laboratory Tests 03/26/18 03/26/18 03/26/18 Range/Units 21:00 21:00 21:00 WBC 8.3 (5.0-10.0) 10^3/uL RBC 4.62 (4.2-5.4) 10^6/uL Hgb 13.7 (12.0-16.0) g/dL Hct 39.8 (37.0-47.0) % MCV 86.1 (80-100) fL MCH 29.7 (27.0-34.0) pg MCHC 34.4 (33.0-35.0) g/dL Plt Count 222 (150-450) 10^3/uL Neut % (Auto) 50.8 (42.2-75.2) % Lymph % (Auto) 36.9 (20.5-50.1) % [place] % (Auto) 11.0 H (2-8) % Eos % (Auto) 1.1 (1.0-3.0) % Baso % (Auto) 0.2 (0.0-1.0) % Sodium 136 (135-145) mmol/L Potassium 3.4 L (3.6-5.0) mmol/L Chloride 105 (101-111) mmol/L Carbon Dioxide 21.0 (21.0-31.0) mmol/L Anion Gap 13.4 BUN 7 (7-18) mg/dL Creatinine 0.6 (0.6-1.3) mg/dL Est Cr Clr Drug Dosing 119.60 mL/min Estimated GFR (MDRD) > 60 BUN/Creatinine Ratio 11.66 Glucose 98 (74-105) mg/dL Calcium 9.3 (8.4-10.2) mg/dl Total Bilirubin 0.2 (0.2-1.0) mg/dL AST 20 (10-42) IU/L ALT 18 (10-60) IU/L Alkaline Phosphatase 39 L (42-121) IU/L Total Protein 7.0 (6.7-8.2) g/dl Albumin 3.8 (3.2-5.5) g/dl Globulin 3.2 Albumin/Globulin Ratio 1.19 HCG, Qual Positive HCG, Quant > 1324 H (0-25) mIU/ml Beta HCG, Quant [id number] mIU/ml Meds: Medications Discontinued Medications Generic Name Dose Route Start Last Admin Trade Name Noam PRN Reason Stop Dose Admin Sodium Chloride 1,000 mls @ 150 mls/hr 03/26/18 20:38 03/26/18 21:06 Normal Saline IV 03/27/18 03:17 150 mls/hr .BOLUS ONE Administration Metoclopramide HCl 10 mg 03/26/18 21:10 03/26/18 21:25 Reglan PO 03/26/18 21:11 Not Given ONETIME ONE Metoclopramide HCl 10 mg 03/26/18 21:21 03/26/18 21:25 Reglan IVPUSH 03/26/18 21:22 10 mg ONETIME ONE Administration Morphine Sulfate 4 mg 03/26/18 21:11 03/26/18 21:26 Morphine IVPUSH 03/26/18 21:12 4 mg ONETIME ONE Administration - Re-Assessments/Exams Free Text/Narrative Re-Assessment/Exam: 03/26/18 21:41 NIDIA Anthony, Dr. Lauren, refer to ER Dr Anderson accepting of patient. . US unavailable here. No prior US., HX miscarriage 6 months ago with complication. Tx via LRAS to GF. 03/27/18 02:18 Departure - Departure Time of Disposition: 21:41 Disposition: DC/Tfer to Acute Hospital 02 Condition: Good Clinical Impression: Threatened - Discharge Information Referrals: Zulema Rogers PA-C [Primary Care Provider] - Forms: ED Department Discharge
== END 2018-03-26 21:52 ==
LOC: DL.ED 19:22
DX: O20.0 Threatened abortion (principal); Z3A.11 11 weeks gestation of pregnancy; Z88.1 Allergy status to other antibiotic agents; Z91.040 Latex allergy status; Z88.2 Allergy status to sulfonamides; Z91.09 Other allergy status, other than to drugs and biological substances; Z79.899 Other long term (current) drug therapy
CPT/HCPCS: 36415; 80053; 84702; 84703; 85025; 96361; 96374; 96375; 99284; J2270; J2765; J7030

== ENCOUNTER 2018-05-25 13:43 | Emergency (ER) | payer MEDICAID ==
[2018-05-25 13:58] VITALS: BP 153/87
[2018-05-25] MEDS ORDERED: Sodium Chloride 0.9% 10 ML Syringe FLUSH PRN (14:07)
--- NOTE | 2018-05-25 14:29 | EDM.PDOC ---
ED HPI GENERAL MEDICAL PROBLEM - General Chief Complaint: Chest Pain Stated Complaint: CHEST PAIN [id number] Time Seen by Provider: 05/25/18 14:10 Source of Information: Reports: Patient History Limitations: Reports: No Limitations - History of Present Illness INITIAL COMMENTS - FREE TEXT/NARRATIVE: Patient comes emergency department today with complaints of chest pain. The patient had an induction of labor yesterday and [place] due to a miscarriage. She does have a history of cerebral palsy for which she is in a wheelchair majority of the time. Last night when she got home she developed left -sided chest pain that is now radiated to the right. Describes the pain as pressure constant with sharp shooting pain with movement. She has tried nothing for pain. Today she feels somewhat short of breath and feels her heart racing. No cough or congestion. She has not coughed up any blood. She does feel somewhat unsteady upon standing more than normal. No fever no chills no congestion. No recent long extensive travel in a plane or car. No abdominal pain nausea or vomiting. Does have some vaginal bleeding but it has improved since yesterday which is expected due to the miscarriage was induced labor yesterday. She denies any history of clotting disorders. Bilateral Upper Anterior Chest Pain Score (Numeric/FACES): 8 - Related Data Allergies Allergy/AdvReac Type Severity Reaction Status Date / Time erythromycin base Allergy Anaphylactic Verified 03/26/18 19:56 [Erythromycin Base] Shock erythromycin ethylsuccinate Allergy Anaphylactic Verified 03/26/18 19:56 [From Pediazole] Shock latex Allergy Rash Verified 03/26/18 19:56 Sulfa (Sulfonamide Allergy Anaphylactic Verified 03/26/18 19:56 Antibiotics) Shock sulfisoxazole acetyl Allergy Anaphylactic Verified 03/26/18 19:56 [From Pediazole] Shock glutin Allergy Nausea and Uncoded 03/26/18 19:56 Vomiting tape Allergy Rash Uncoded 03/26/18 19:56 Home Meds: Home Meds Acetaminophen [Tylenol Extra Strength] 1,000 mg PO ASDIRECTED PRN 01/03/15 [ History] Albuterol Sulfate 2.5 mg IH Q4HR PRN 11/26/16 [History] Prenat Vit Comb.10/Iron/Fa/Dha [Vitafol-OB + DHA] 1 tab PO DAILY 11/23/17 [ History] Past Medical History HEENT History: Reports: Impaired Vision, Other (See Below) Other HEENT History: wears glasses Cardiovascular History: Reports: None Respiratory History: Reports: Asthma, Bronchitis, Recurrent Gastrointestinal History: Reports: Bowel Obstruction, Gastritis Genitourinary History: Reports: Pyelonephritis, UTI, Recurrent, Other (See Below ) Other Genitourinary History: neurogenic bladder with mitrofenoff procedure RELAY MAN History: Reports: , Spontaneous Musculoskeletal History: Reports: Arthritis, Osteoarthritis Neurological History: Reports: Cerebral Palsy, Seizure Psychiatric History: Reports: Anxiety Endocrine/Metabolic History: Reports: None Hematologic History: Reports: Iron Deficiency Immunologic History: Reports: None Oncologic (Cancer) History: Reports: Other (See Below) Other Oncologic History: Melanoma Dermatologic History: Reports: Melanoma - Infectious Disease History Infectious Disease History: Reports: Chicken Pox, Extended Spectrum Beta- Lactamase (ESBL), Other (See Below) Other Infectious Disease History: E coli bacteremia - Past Surgical History HEENT Surgical History: Reports: Eye Surgery, Myringotomy w Tube(s) GI Surgical History: Reports: Appendectomy, EGD, Other (See Below) Other GI Surgeries/Procedures: Catheter Navel Female Surgical History: Reports: D&C Neurological Surgical History: Reports: None Musculoskeletal Surgical History: Reports: Hip Replacement, Other (See Below) Other Musculoskeletal Surgeries/Procedures:: Multiple hip surgeries Oncologic Surgical History: Reports: None Social & Family History - Family History Family Medical History: Noncontributory Endocrine/Metabolic: Reports: Diabetes, type II Oncologic: Reports: Skin - Tobacco Use Smoking Status *Q: Never Smoker Second Hand Smoke Exposure: No - Caffeine Use Caffeine Use: Reports: Soda - Recreational Drug Use Recreational Drug Use: No ED ROS GENERAL - Review of Systems Review Of Systems: ROS reveals no pertinent complaints other than HPI. ED EXAM, GENERAL - Physical Exam Exam: See Below Exam Limited By: No Limitations General Appearance: Alert, WD/WN, No Apparent Distress Ears: Normal External Exam, Normal Canal Nose: Normal Inspection Throat/Mouth: Normal Inspection Head: Atraumatic, Normocephalic Respiratory/Chest: No Respiratory Distress, Lungs Clear, Normal Breath Sounds, No Accessory Muscle Use, Chest Non-Tender Cardiovascular: Normal Peripheral Pulses, Regular Rate, Rhythm, No Edema, No Gallop, No Murmur, No Rub, Tachycardia (105) Peripheral Pulses: 2+: Posterior Tibial (L), Posterior Tibial (R), Dorsalis Pedis (L), Dorsalis Pedis (R) GI/Abdominal: Normal Bowel Sounds, Soft, Non-Tender (Female) Exam: Deferred Rectal (Female) Exam: Deferred, Perirectal Abscess Back Exam: Normal Inspection Extremities: Normal Inspection. No: Linnea's Sign, Leg Pain Neurological: Alert, Oriented, CN II-XII Intact, Normal Cognition. No: Normal Gait (not tested. ) Psychiatric: Normal Affect, Normal Mood Skin Exam: Warm, Dry, Intact, Normal Color Lymphatic: No Adenopathy EKG INTERPRETATION EKG Date: 05/25/18 Time: 13:52 Rhythm: Other Rate (Beats/Min): 85 [place]: Normal P-Wave: Present QRS: Normal ST-T: Normal QT: Normal Comparison: NA - No Prior EKG Course - Vital Signs Last Recorded V/S: Last Vital Signs Temp 36.9 C 05/25/18 13:57 Pulse 105 H 05/25/18 13:57 Resp 18 05/25/18 13:57 BP 153/87 H 05/25/18 13:57 Pulse Ox 97 05/25/18 13:57 - Orders/Labs/Meds Orders: Active Orders 24 hr Category Date Time Status EKG 12 Lead [EKG Documentation Completion] [RC] URGENT Care 05/25/18 14:07 Active Peripheral IV Care [RC] . DIRECTED Care 05/25/18 14:07 Active RT Aerosol Therapy [RC] ASDIRECTED Care 05/25/18 15:16 Active Chest 2V [CR] Urgent Exams 05/25/18 14:07 Ordered Sodium Chloride 0.9% [Saline Flush] Med 05/25/18 14:07 Active 10 ml FLUSH ASDIRECTED PRN Peripheral IV Insertion Adult [OM.PC] Stat Oth 05/25/18 14:07 Ordered Medication Orders Sodium Chloride (Saline Flush) 10 ml FLUSH ASDIRECTED PRN PRN Reason: Keep Vein Open Last Admin: 05/25/18 14:34 Dose: 10 ml Labs: Laboratory Tests 05/25/18 05/25/18 05/25/18 Range/Units 14:35 14:35 14:35 WBC 9.4 (5.0-10.0) 10^3/uL RBC 4.47 (4.2-5.4) 10^6/uL Hgb 13.2 D (12.0-16.0) g/dL Hct 39.5 (37.0-47.0) % MCV 88.4 (80-100) fL MCH 29.5 (27.0-34.0) pg MCHC 33.4 (33.0-35.0) g/dL Plt Count 184 (150-450) 10^3/uL Neut % (Auto) 69.3 (42.2-75.2) % Lymph % (Auto) 22.7 (20.5-50.1) % [place] % (Auto) 6.6 (2-8) % Eos % (Auto) 1.3 (1.0-3.0) % Baso % (Auto) 0.1 (0.0-1.0) % D-Dimer, Quantitative 371 (0-400) ng/mL Sodium 137 (135-145) mmol/L Potassium 3.5 L (3.6-5.0) mmol/L Chloride 106 (101-111) mmol/L Carbon Dioxide 23.0 (21.0-31.0) mmol/L Anion Gap 11.5 BUN 7 (7-18) mg/dL Creatinine 0.6 (0.6-1.3) mg/dL Est Cr Clr Drug Dosing 124.85 mL/min Estimated GFR (MDRD) > 60 BUN/Creatinine Ratio 11.66 Glucose 100 (74-105) mg/dL Calcium 9.1 (8.4-10.2) mg/dl Total Bilirubin 0.3 (0.2-1.0) mg/dL AST 19 (10-42) IU/L ALT 14 (10-60) IU/L Alkaline Phosphatase 40 L (42-121) IU/L Troponin I < 0.02 (0.00-0.02) ng/ml Total Protein 6.9 (6.7-8.2) g/dl Albumin 3.6 (3.2-5.5) g/dl Globulin 3.3 Albumin/Globulin Ratio 1.09 Meds: Medications Generic Name Dose Route Start Last Admin Trade Name Freq PRN Reason Stop Dose Admin Sodium Chloride 10 ml 05/25/18 14:07 05/25/18 14:34 Saline Flush FLUSH 10 ml ASDIRECTED PRN Administration Keep Vein Open Discontinued Medications Generic Name Dose Route Start Last Admin Trade Name Noam PRN Reason Stop Dose Admin Albuterol 2.5 mg 05/25/18 15:16 Proventil Neb Soln NEB 05/25/18 15:17 ONETIME ONE - Re-Assessments/Exams Free Text/Narrative Re-Assessment/Exam: 05/25/18 15:27 D-Dimer is normal Chest no acute findings per radiology. GI Cocktail given. Labs unremarkable. 05/25/18 15:59 I do not know what is causing her pain but I'm not finding anything urgent or emergent at this time. We will discharge her home. Departure - Departure Time of Disposition: 15:51 Disposition: Home, Self-Care 01 Clinical Impression: Chest pain, non-cardiac Instructions: Nonspecific Chest Pain, [id number] Forms: ED Department Discharge Additional Instructions: Tylenol and or Ibuprofen as needed for pain. Return to the ED if new or worsening symptoms. Follow up with primary care provider in the next 4-6 days if not improving sooner if worse. - My Orders Last 24 Hours: My Active Orders 05/25/18 14:07 EKG 12 Lead [EKG Documentation Completion] [RC] URGENT Peripheral IV Care [RC] . DIRECTED Chest 2V [CR] Urgent Sodium Chloride 0.9% [Saline Flush] 10 ml FLUSH ASDIRECTED PRN Peripheral IV Insertion Adult [OM.PC] Stat 05/25/18 15:16 RT Aerosol Therapy [RC] ASDIRECTED - Assessment/Plan Last 24 Hours: My Active Orders 05/25/18 14:07 EKG 12 Lead [EKG Documentation Completion] [RC] URGENT Peripheral IV Care [RC] . DIRECTED Chest 2V [CR] Urgent Sodium Chloride 0.9% [Saline Flush] 10 ml FLUSH ASDIRECTED PRN Peripheral IV Insertion Adult [OM.PC] Stat 05/25/18 15:16 RT Aerosol Therapy [RC] ASDIRECTED Assessment:: Chest pain none-cardiac. Plan: Tylenol and or Ibuprofen as needed for pain. Return to the ED if new or worsening symptoms. Follow up with primary care provider in the next 4-6 days if not improving sooner if worse.
[2018-05-25 15:04] LABS: ANION GAP 11.5; CHLORIDE,CL 106 mmol/L (101-111); SODIUM,NA 137 mmol/L (135-145)
[2018-05-25] MEDS ORDERED: Albuterol 0.083% 2.5 MG/3 ML Neb Soln NEB ONE (15:16)
[2018-05-25] MEDS ORDERED: GI Cocktail Oral Solution 30 ML PO ONE (15:26)
--- NOTE | 2018-05-28 07:50 | EKG ---
05/25/2018- COLE SEGURA - EKG per my reading, shows sinus rhythm at the rate of 85. MOD /[id number]
== END 2018-05-25 16:14 | disposition home or self-care (01) ==
LOC: DL.ED 13:43
DX: R07.89 Other chest pain (principal); Z88.1 Allergy status to other antibiotic agents; Z91.040 Latex allergy status; Z88.2 Allergy status to sulfonamides; Z91.09 Other allergy status, other than to drugs and biological substances; Z79.899 Other long term (current) drug therapy
CPT/HCPCS: 36415; 71046; 80053; 84484; 85025; 85379; 93005; 93010; 94640; 99285; A9270; J7050; J7620

== ENCOUNTER 2019-02-10 23:57 | Emergency (ER) | payer MEDICAID ==
[2019-02-11 00:13] VITALS: BP 156/119
--- NOTE | 2019-02-11 00:20 | EDM.PDOC ---
ED HPI GENERAL MEDICAL PROBLEM - General Chief Complaint: General Stated Complaint: PORT IN CHEST, CLOTTING? [id number] Time Seen by Provider: 02/11/19 00:11 Source of Information: Reports: Patient History Limitations: Reports: No Limitations - History of Present Illness INITIAL COMMENTS - FREE TEXT/NARRATIVE: This 23 yo female patient reports to the ED due to pain over her port (right chest) and a sensation of her heart "fluttering". The patient reports her symptoms started yesterday, but have gotten worse today. The patient reports she did fall yesterday onto her left side, but denies any other injuries or trauma. Onset Date: 02/10/19 Duration: Constant Location: Reports: Chest (right anterior chest) Quality: Reports: Ache, Dull Severity: Mild Improves with: Reports: None Worsens with: Reports: None Context: Reports: Other Associated Symptoms: Reports: No Other Symptoms Right Upper Chest Pain Score (Numeric/FACES): 6 - Related Data Allergies Allergy/AdvReac Type Severity Reaction Status Date / Time erythromycin base Allergy Anaphylactic Verified 02/11/19 00:06 [Erythromycin Base] Shock erythromycin ethylsuccinate Allergy Anaphylactic Verified 02/11/19 00:06 [From Pediazole] Shock latex Allergy Rash Verified 02/11/19 00:06 Sulfa (Sulfonamide Allergy Anaphylactic Verified 02/11/19 00:06 Antibiotics) Shock sulfisoxazole acetyl Allergy Anaphylactic Verified 02/11/19 00:06 [From Pediazole] Shock glutin Allergy Nausea and Uncoded 02/11/19 00:06 Vomiting tape Allergy Rash Uncoded 02/11/19 00:06 Home Meds: Home Meds Acetaminophen [Tylenol Extra Strength] 1,000 mg PO ASDIRECTED PRN 01/03/15 [ History] Albuterol Sulfate 2.5 mg IH Q4HR PRN 11/26/16 [History] Past Medical History HEENT History: Reports: Impaired Vision, Other (See Below) Other HEENT History: wears glasses Cardiovascular History: Reports: None Respiratory History: Reports: Asthma, Bronchitis, Recurrent Gastrointestinal History: Reports: Bowel Obstruction, Gastritis Genitourinary History: Reports: Pyelonephritis, UTI, Recurrent, Other (See Below ) Other Genitourinary History: neurogenic bladder with mitrofenoff procedure 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: , 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 Musculoskeletal History: Reports: Arthritis, Osteoarthritis Neurological History: Reports: Cerebral Palsy, Seizure Psychiatric History: Reports: Anxiety Endocrine/Metabolic History: Reports: None Hematologic History: Reports: Iron Deficiency Immunologic History: Reports: None Oncologic (Cancer) History: Reports: Other (See Below) Other Oncologic History: Melanoma Dermatologic History: Reports: Melanoma - Infectious Disease History Infectious Disease History: Reports: Chicken Pox, Extended Spectrum Beta- Lactamase (ESBL), Other (See Below) Other Infectious Disease History: E coli bacteremia - Past Surgical History HEENT Surgical History: Reports: Eye Surgery, Myringotomy w Tube(s) GI Surgical History: Reports: Appendectomy, EGD, Other (See Below) Other GI Surgeries/Procedures: Catheter Navel Female Surgical History: Reports: D&C Neurological Surgical History: Reports: None Musculoskeletal Surgical History: Reports: Hip Replacement, Other (See Below) Other Musculoskeletal Surgeries/Procedures:: Multiple hip surgeries Oncologic Surgical History: Reports: None Social & Family History - Family History Family Medical History: Noncontributory Endocrine/Metabolic: Reports: Diabetes, type II Oncologic: Reports: Skin - Caffeine Use Caffeine Use: Reports: Soda ED ROS GENERAL - Review of Systems Review Of Systems: ROS reveals no pertinent complaints other than HPI. ED EXAM, GENERAL - Physical Exam Exam: See Below Exam Limited By: No Limitations General Appearance: Alert, WD/WN, Mild Distress Eye Exam: Bilateral Eye: EOMI, Normal Inspection, PERRL Ears: Normal External Exam, Normal Canal, Hearing Grossly Normal, Normal TMs Nose: Normal Inspection, Normal Mucosa, No Blood Throat/Mouth: Normal Inspection, Normal Lips, Normal Teeth, Normal Gums, Normal Oropharynx, Normal Voice, No Airway Compromise Head: Atraumatic, Normocephalic Neck: Normal Inspection, Supple, Non-Tender, Full Range of Motion Respiratory/Chest: No Respiratory Distress, Lungs Clear, Normal Breath Sounds, No Accessory Muscle Use, Other (tenderness to her right chest wall (near her port)) Cardiovascular: Normal Peripheral Pulses, Regular Rate, Rhythm, No Edema, No Gallop, No JVD, No Murmur, No Rub GI/Abdominal: Normal Bowel Sounds, Soft, Non-Tender, No Organomegaly, No Distention, No Abnormal Bruit, No Mass (Female) Exam: Deferred Rectal (Female) Exam: Deferred Back Exam: Normal Inspection, Full Range of Motion, NT Extremities: Normal Inspection, Normal Range of Motion, Non-Tender, Normal Capillary Refill, No Pedal Edema Neurological: Alert, Oriented, CN II-XII Intact, Normal Cognition, Normal Gait, Normal Reflexes, No Motor/Sensory Deficits Psychiatric: Normal Affect, Normal Mood Skin Exam: Warm, Dry, Intact, Normal Color, No Rash, Other (no rash, erythema or abnormalities noted around or near port.) Lymphatic: No Adenopathy Course - Vital Signs Last Recorded V/S: Last Vital Signs Temp 37.6 C 02/11/19 00:11 Pulse 103 H 02/11/19 00:11 Resp 18 02/11/19 00:11 BP 156/119 H 02/11/19 00:11 Pulse Ox 99 02/11/19 00:11 - Orders/Labs/Meds Orders: Active Orders 24 hr Category Date Time Status EKG Documentation Completion [RC] URGENT Care 02/11/19 00:15 Active Chest 2V [CR] Urgent Exams 02/11/19 00:15 Taken Labs: Laboratory Tests 02/11/19 02/11/19 Range/Units 00:25 00:53 WBC 7.8 (5.0-10.0) 10^3/uL RBC 4.93 (4.2-5.4) 10^6/uL Hgb 14.8 (12.0-16.0) g/dL Hct 43.0 (37.0-47.0) % MCV 87.2 (80-100) fL MCH 30.0 (27.0-34.0) pg MCHC 34.4 (33.0-35.0) g/dL Plt Count 254 (150-450) 10^3/uL Neut % (Auto) 56.4 (42.2-75.2) % Lymph % (Auto) 28.9 (20.5-50.1) % [place] % (Auto) 12.4 H (2-8) % Eos % (Auto) 2.0 (1.0-3.0) % Baso % (Auto) 0.3 (0.0-1.0) % Add Manual Diff Yes Neutrophils % (Manual) 57 (42-75) % Lymphocytes % (Manual) 31 (20-50) % Monocytes % (Manual) 9 H (2-8) % Eosinophils % (Manual) 3 (1-3) % Sodium 135 (135-145) mmol/L Potassium 3.9 (3.6-5.0) mmol/L Chloride 104 (101-111) mmol/L Carbon Dioxide 20.0 L (21.0-31.0) mmol/L Anion Gap 14.9 BUN 6 L (7-18) mg/dL Creatinine 0.7 (0.6-1.3) mg/dL Est Cr Clr Drug Dosing 106.09 mL/min Estimated GFR (MDRD) > 60 BUN/Creatinine Ratio 8.57 Glucose 112 H (74-105) mg/dL Calcium 9.3 (8.4-10.2) mg/dl Total Bilirubin 0.5 (0.2-1.0) mg/dL AST 24 (10-42) IU/L ALT 20 (10-60) IU/L Alkaline Phosphatase 50 (42-121) IU/L Troponin I < 0.02 (0.00-0.02) ng/ml Total Protein 7.5 (6.7-8.2) g/dl Albumin 4.1 (3.2-5.5) g/dl Globulin 3.4 Albumin/Globulin Ratio 1.21 Departure - Departure Time of Disposition: : Disposition: Home, Self-Care 01 Condition: Fair Clinical Impression: Chest wall muscle strain Qualifiers: Encounter type: initial encounter Qualified Code(s): S29.011A - Strain of muscle and tendon of front wall of thorax, initial encounter - Discharge Information *PRESCRIPTION DRUG MONITORING PROGRAM REVIEWED*: Not Applicable *COPY OF PRESCRIPTION DRUG MONITORING REPORT IN PATIENT KYA: Not Applicable Instructions: Muscle Strain, [id number] Forms: ED Department Discharge Care Plan Goals: The patient was advised of the examination, lab, EKG and x-ray results during the visit. The patient was encouraged to take either Tylenol or ibuprofen for temporary symptom relief. If the patient has any additional symptoms or concerns , the patient should either visit her primary care facility or return to the emergency department. - My Orders Last 24 Hours: My Active Orders 02/11/19 00:15 EKG Documentation Completion [RC] URGENT Chest 2V [CR] Urgent - Assessment/Plan Last 24 Hours: My Active Orders 02/11/19 00:15 EKG Documentation Completion [RC] URGENT Chest 2V [CR] Urgent
[2019-02-11 00:53] LABS: ANION GAP 14.9; CHLORIDE,CL 104 mmol/L (101-111); SODIUM,NA 135 mmol/L (135-145)
== END 2019-02-11 01:38 | disposition home or self-care (01) ==
LOC: DL.ED 23:57
DX: S29.011A Strain of muscle and tendon of front wall of thorax, initial encounter (principal); J45.909 Unspecified asthma, uncomplicated; F41.9 Anxiety disorder, unspecified; Z88.1 Allergy status to other antibiotic agents; Z88.2 Allergy status to sulfonamides; Z88.8 Allergy status to other drugs, medicaments and biological substances; Z79.899 Other long term (current) drug therapy; X50.9XXA Other and unspecified overexertion or strenuous movements or postures, initial encounter
CPT/HCPCS: 36415; 71046; 80053; 84484; 85025; 93005; 99284-25

== ENCOUNTER 2019-02-14 23:18 | Inpatient (IN) | payer MEDICAID ==
[2019-02-14] MEDS ORDERED: methylPREDNISolone Sodium Succinate 125 MG/2 ML SDV IVPUSH ONE (23:29)
[2019-02-14] MEDS ORDERED: Albuterol/Ipratropium 3.0-0.5 MG/3 ML Neb Soln NEB ONE (23:29)
[2019-02-14] MEDS ORDERED: Codeine/Promethazine 10-6.25 MG/5 ML Syrup 5 ML UD Cup PO ONE (23:31)
--- NOTE | 2019-02-14 23:34 | EDM.PDOC ---
ED HPI GENERAL MEDICAL PROBLEM - General Chief Complaint: Respiratory Problem Stated Complaint: COUGH,CANT BREATHE Time Seen by Provider: 02/14/19 23:32 Source of Information: Reports: Patient History Limitations: Reports: No Limitations - History of Present Illness INITIAL COMMENTS - FREE TEXT/NARRATIVE: has asthma, been using nebs but not helping been coughing till chest hurts and almost vomits. got zpak few weeks ago that helped for a while but problem returned. Chest Pain Score (Numeric/FACES): 6 - Related Data Allergies Allergy/AdvReac Type Severity Reaction Status Date / Time erythromycin base Allergy Anaphylactic Verified 02/14/19 23:27 [Erythromycin Base] Shock erythromycin ethylsuccinate Allergy Anaphylactic Verified 02/14/19 23:27 [From Pediazole] Shock latex Allergy Rash Verified 02/14/19 23:27 Sulfa (Sulfonamide Allergy Anaphylactic Verified 02/14/19 23:27 Antibiotics) Shock sulfisoxazole acetyl Allergy Anaphylactic Verified 02/14/19 23:27 [From Pediazole] Shock glutin Allergy Nausea and Uncoded 02/14/19 23:27 Vomiting tape Allergy Rash Uncoded 02/14/19 23:27 Home Meds: Home Meds Acetaminophen [Tylenol Extra Strength] 1,000 mg PO ASDIRECTED PRN 01/03/15 [ History] Albuterol Sulfate 2.5 mg IH Q4HR PRN 11/26/16 [History] Past Medical History HEENT History: Reports: Impaired Vision, Other (See Below) Other HEENT History: wears glasses Cardiovascular History: Reports: None Respiratory History: Reports: Asthma, Bronchitis, Recurrent Gastrointestinal History: Reports: Bowel Obstruction, Gastritis Genitourinary History: Reports: Pyelonephritis, UTI, Recurrent, Other (See Below ) Other Genitourinary History: neurogenic bladder with mitrofenoff procedure [employer] History: Reports: , Spontaneous Musculoskeletal History: Reports: Arthritis, Osteoarthritis Neurological History: Reports: Cerebral Palsy, Seizure Psychiatric History: Reports: Anxiety Endocrine/Metabolic History: Reports: None Hematologic History: Reports: Iron Deficiency Immunologic History: Reports: None Oncologic (Cancer) History: Reports: Other (See Below) Other Oncologic History: Melanoma Dermatologic History: Reports: Melanoma - Infectious Disease History Infectious Disease History: Reports: Chicken Pox, Extended Spectrum Beta- Lactamase (ESBL), Other (See Below) Other Infectious Disease History: E coli bacteremia - Past Surgical History HEENT Surgical History: Reports: Eye Surgery, Myringotomy w Tube(s) GI Surgical History: Reports: Appendectomy, EGD, Other (See Below) Other GI Surgeries/Procedures: Catheter Navel Female Surgical History: Reports: D&C Neurological Surgical History: Reports: None Musculoskeletal Surgical History: Reports: Hip Replacement, Other (See Below) Other Musculoskeletal Surgeries/Procedures:: Multiple hip surgeries Oncologic Surgical History: Reports: None Social & Family History - Family History Family Medical History: Noncontributory Endocrine/Metabolic: Reports: Diabetes, type II Oncologic: Reports: Skin - Caffeine Use Caffeine Use: Reports: Soda ED ROS GENERAL - Review of Systems Review Of Systems: ROS reveals no pertinent complaints other than HPI. ED EXAM, GENERAL - Physical Exam Exam: See Below Exam Limited By: No Limitations General Appearance: Alert, WD/WN, Mild Distress, Other (cough spasms) Ears: Hearing Grossly Normal Throat/Mouth: Normal Voice, No Airway Compromise Head: Atraumatic Neck: Non-Tender, Full Range of Motion Respiratory/Chest: Decreased Breath Sounds, Rhonchi, Wheezing Cardiovascular: Regular Rate, Rhythm GI/Abdominal: Soft, Non-Tender Neurological: Alert, Oriented, Normal Cognition, Normal Gait, No Motor/Sensory Deficits Psychiatric: Tearful Skin Exam: Warm, Dry, Normal Color Lymphatic: No Adenopathy Course - Vital Signs Last Recorded V/S: Last Vital Signs Temp 37.6 C 02/14/19 23:47 Pulse 116 H 02/14/19 23:47 Resp 22 H 02/14/19 23:47 BP 131/77 02/14/19 23:47 Pulse Ox 96 02/14/19 23:47 - Orders/Labs/Meds Orders: Active Orders 24 hr Category Date Time Status RT Aerosol Therapy [RC] ASDIRECTED Care 02/14/19 23:30 Active Chest 1V Frontal [CR] Urgent Exams 02/15/19 00:15 Taken CULTURE BLOOD [BC] Stat Lab 02/14/19 23:37 Received Labs: Laboratory Tests 02/14/19 02/14/19 02/14/19 Range/Units 23:37 23:37 23:37 WBC 8.1 (5.0-10.0) 10^3/uL RBC 5.08 (4.2-5.4) 10^6/uL Hgb 15.1 (12.0-16.0) g/dL Hct 44.4 (37.0-47.0) % MCV 87.4 (80-100) fL MCH 29.7 (27.0-34.0) pg MCHC 34.0 (33.0-35.0) g/dL Plt Count 251 (150-450) 10^3/uL Neut % (Auto) 52.5 (42.2-75.2) % Lymph % (Auto) 35.8 (20.5-50.1) % [place] % (Auto) 10.0 H (2-8) % Eos % (Auto) 1.6 (1.0-3.0) % Baso % (Auto) 0.1 (0.0-1.0) % Sodium 138 (135-145) mmol/L Potassium 4.1 (3.6-5.0) mmol/L Chloride 105 (101-111) mmol/L Carbon Dioxide 20.0 L (21.0-31.0) mmol/L Anion Gap 17.1 BUN 8 (7-18) mg/dL Creatinine 0.8 (0.6-1.3) mg/dL Est Cr Clr Drug Dosing 92.83 mL/min Estimated GFR (MDRD) > 60 BUN/Creatinine Ratio 10.00 Glucose 118 H (74-105) mg/dL Lactic Acid 2.4 H (0.5-2.2) mmol/L Calcium 9.1 (8.4-10.2) mg/dl Total Bilirubin 0.4 (0.2-1.0) mg/dL AST 32 (10-42) IU/L ALT 18 (10-60) IU/L Alkaline Phosphatase 45 (42-121) IU/L Total Protein 7.7 (6.7-8.2) g/dl Albumin 4.0 (3.2-5.5) g/dl Globulin 3.7 Albumin/Globulin Ratio 1.08 HCG, Qual Urine Color (YELLOW) Urine Appearance (CLEAR) Urine pH (5.0-9.0) Ur Specific [place] (1.005-1.030) Urine Protein (NEGATIVE) Urine Glucose (UA) (NEGATIVE) Urine Ketones (NEGATIVE) Urine Occult Blood (NEGATIVE) Urine Nitrite (NEGATIVE) Urine Bilirubin (NEGATIVE) Urine Urobilinogen (0.2-1.0) mg/dL Ur Leukocyte Esterase (NEGATIVE) Urine RBC /HPF Urine WBC (0-5/HPF) /HPF Ur Epithelial Cells /HPF Amorphous Sediment (0/HPF) /HPF Urine Bacteria (0-FEW/HPF) /HPF Urine Mucus /LPF 02/14/19 02/15/19 Range/Units 23:37 00:14 WBC (5.0-10.0) 10^3/uL RBC (4.2-5.4) 10^6/uL Hgb (12.0-16.0) g/dL Hct (37.0-47.0) % MCV (80-100) fL MCH (27.0-34.0) pg MCHC (33.0-35.0) g/dL Plt Count (150-450) 10^3/uL Neut % (Auto) (42.2-75.2) % Lymph % (Auto) (20.5-50.1) % [place] % (Auto) (2-8) % Eos % (Auto) (1.0-3.0) % Baso % (Auto) (0.0-1.0) % Sodium (135-145) mmol/L Potassium (3.6-5.0) mmol/L Chloride (101-111) mmol/L Carbon Dioxide (21.0-31.0) mmol/L Anion Gap BUN (7-18) mg/dL Creatinine (0.6-1.3) mg/dL Est Cr Clr Drug Dosing mL/min Estimated GFR (MDRD) BUN/Creatinine Ratio Glucose (74-105) mg/dL Lactic Acid (0.5-2.2) mmol/L Calcium (8.4-10.2) mg/dl Total Bilirubin (0.2-1.0) mg/dL AST (10-42) IU/L ALT (10-60) IU/L Alkaline Phosphatase (42-121) IU/L Total Protein (6.7-8.2) g/dl Albumin (3.2-5.5) g/dl Globulin Albumin/Globulin Ratio HCG, Qual Negative Urine Color Yellow (YELLOW) Urine Appearance Clear (CLEAR) Urine pH 6.0 (5.0-9.0) Ur Specific [place] 1.010 (1.005-1.030) Urine Protein Negative (NEGATIVE) Urine Glucose (UA) Negative (NEGATIVE) Urine Ketones Negative (NEGATIVE) Urine Occult Blood Negative (NEGATIVE) Urine Nitrite Negative (NEGATIVE) Urine Bilirubin Negative (NEGATIVE) Urine Urobilinogen 0.2 (0.2-1.0) mg/dL Ur Leukocyte Esterase Negative (NEGATIVE) Urine RBC 0-5 /HPF Urine WBC 5-10 H (0-5/HPF) /HPF Ur Epithelial Cells Rare /HPF Amorphous Sediment Rare (0/HPF) /HPF Urine Bacteria Rare (0-FEW/HPF) /HPF Urine Mucus Rare /LPF Meds: Medications Discontinued Medications Generic Name Dose Route Start Last Admin Trade Name Freq PRN Reason Stop Dose Admin Albuterol/Ipratropium 3 ml 02/14/19 23:29 02/14/19 23:39 Duoneb 3.0-0.5 Mg/3 Ml NEB 02/14/19 23:30 3 ml ONETIME ONE Administration Methylprednisolone Sodium Succinate 125 mg 02/14/19 23:29 02/14/19 23:39 Solu-Medrol IVPUSH 02/14/19 23:30 125 mg ONETIME ONE Administration Promethazine HCl/Codeine 5 ml 02/14/19 23:31 02/14/19 23:41 Phenergan With Codeine PO 02/14/19 23:32 5 ml ONETIME ONE Administration - Re-Assessments/Exams Free Text/Narrative Re-Assessment/Exam: 02/15/19 00:[address] Olmedo who kindly admitted pt to observation Departure - Departure Time of Disposition: 00:54 Disposition: Refer to Observation Condition: Fair Clinical Impression: Bronchospasm Asthma with status asthmaticus Qualifiers: Asthma severity: moderate Asthma persistence: persistent Qualified Code(s): J45.42 - Moderate persistent asthma with status asthmaticus Pneumonia Qualifiers: Pneumonia type: due to unspecified organism Laterality: right Lung location: lower lobe of lung Qualified Code(s): J18.1 - Lobar pneumonia, unspecified organism - Discharge Information Forms: ED Department Discharge - My Orders Last 24 Hours: My Active Orders 02/14/19 23:30 RT Aerosol Therapy [RC] ASDIRECTED 02/14/19 23:37 CULTURE BLOOD [BC] Stat 02/15/19 00:15 Chest 1V Frontal [CR] Urgent - Assessment/Plan Last 24 Hours: My Active Orders 02/14/19 23:30 RT Aerosol Therapy [RC] ASDIRECTED 02/14/19 23:37 CULTURE BLOOD [BC] Stat 02/15/19 00:15 Chest 1V Frontal [CR] Urgent
[2019-02-15 00:09] LABS: ANION GAP 17.1; CHLORIDE,CL 105 mmol/L (101-111); SODIUM,NA 138 mmol/L (135-145)
--- NOTE | 2019-02-15 01:35 | PCM.HP ---
H&P History of Present Illness - General Date of Service: 02/15/19 Admit Problem/Dx: Admission Diagnosis/Problem Admission Diagnosis/Problem Pneumonia Source of Information: Patient History Limitations: Reports: No Limitations - History of Present Illness Initial Comments - Free Text/Narative: Krista is a 23 y/o F with PMH of cerebral palsy, neurogenic bladder, she self cath herself intermittently. She presented to the ER with cough, SOB x 2 days. She is being having cough minimal of productive sputum for over a week now. This is associated with SOB, wheezing, subjective fever and chills. She used her rescue medication at home with no response. She received Zpak a few days ago with no improvement. She denies nasal congestion, sore throat. She denies chest pain. No abdominal pain, N/V. In the ER Cxr was concerning for pneumonia. She is being admitted to the hospital for further management. Onset of Symptoms: Reports: Gradual Duration of Symptoms: Reports: Day(s): Location: Reports: Chest Quality: Reports: Ache Severity: Moderate Improves with: Reports: None Worsens with: Reports: None Context: Reports: Other (cough) Associated Symptoms: Reports: No Other Symptoms Chest Pain Score (Numeric/FACES): 6 - Related Data Allergies/Adverse Reactions: Allergies Allergy/AdvReac Type Severity Reaction Status Date / Time erythromycin base Allergy Anaphylactic Verified 02/15/19 01:18 [Erythromycin Base] Shock erythromycin ethylsuccinate Allergy Anaphylactic Verified 02/15/19 01:18 [From Pediazole] Shock latex Allergy Rash Verified 02/15/19 01:18 Sulfa (Sulfonamide Allergy Anaphylactic Verified 02/15/19 01:18 Antibiotics) Shock sulfisoxazole acetyl Allergy Anaphylactic Verified 02/15/19 01:18 [From Pediazole] Shock tape Allergy Rash Uncoded 02/14/19 23:27 Home Medications: Home Meds Acetaminophen [Tylenol Extra Strength] 1,000 mg PO ASDIRECTED PRN 01/03/15 [ History] Albuterol Sulfate 90 mcg IH Q4HR PRN 11/26/16 [History] Past Medical History HEENT History: Reports: Impaired Vision, Other (See Below) Other HEENT History: wears glasses Cardiovascular History: Reports: None Respiratory History: Reports: Asthma, Bronchitis, Recurrent Gastrointestinal History: Reports: Bowel Obstruction, Gastritis Genitourinary History: Reports: Pyelonephritis, UTI, Recurrent, Other (See Below ) Other Genitourinary History: neurogenic bladder with mitrofenoff procedure [employer] History: Reports: , Spontaneous Musculoskeletal History: Reports: Arthritis, Osteoarthritis Neurological History: Reports: Cerebral Palsy, Seizure Psychiatric History: Reports: Anxiety Endocrine/Metabolic History: Reports: None Hematologic History: Reports: Iron Deficiency Immunologic History: Reports: None Oncologic (Cancer) History: Reports: Other (See Below) Other Oncologic History: Melanoma Dermatologic History: Reports: Melanoma - Infectious Disease History Infectious Disease History: Reports: Chicken Pox, Extended Spectrum Beta- Lactamase (ESBL), Other (See Below) Other Infectious Disease History: E coli bacteremia - Past Surgical History HEENT Surgical History: Reports: Eye Surgery, Myringotomy w Tube(s) GI Surgical History: Reports: Appendectomy, EGD, Other (See Below) Other GI Surgeries/Procedures: Catheter Navel Female Surgical History: Reports: D&C Neurological Surgical History: Reports: None Musculoskeletal Surgical History: Reports: Hip Replacement, Other (See Below) Other Musculoskeletal Surgeries/Procedures:: Multiple hip surgeries Oncologic Surgical History: Reports: None Social & Family History - Family History Family Medical History: Noncontributory Endocrine/Metabolic: Reports: Diabetes, type II Oncologic: Reports: Skin - Tobacco Use Smoking Status *Q: Never Smoker Second Hand Smoke Exposure: No - Caffeine Use Caffeine Use: Reports: Soda - Recreational Drug Use Recreational Drug Use: No H&P Review of Systems - Review of Systems: Review Of Systems: See Below General: Reports: No Symptoms HEENT: Reports: No Symptoms Pulmonary: Reports: Shortness of Breath, Wheezing, Pleuritic Chest Pain, Cough, Sputum Cardiovascular: Reports: No Symptoms Gastrointestinal: Reports: No Symptoms Genitourinary: Reports: No Symptoms Musculoskeletal: Reports: No Symptoms Skin: Reports: No Symptoms Psychiatric: Reports: No Symptoms Neurological: Reports: No Symptoms Hematologic/Lymphatic: Reports: No Symptoms Immunologic: Reports: No Symptoms Exam - Exam Exam: See Below - Vital Signs Vital Signs: Last Vital Signs Temp 98.3 F 02/15/19 01:20 Pulse 119 H 02/15/19 01:20 Resp 16 02/15/19 01:20 BP 130/73 02/15/19 01:20 Pulse Ox 96 02/15/19 01:20 Weight: 234 lb 6 oz - Exam Quality Assessment: DVT Prophylaxis General: Alert, Oriented, 4 HEENT: PERRLA, Hearing Intact, Mucosa Moist & [place], Nares Patent, Normal Nasal Septum, Posterior Pharynx Clear, Conjunctiva Clear, EOMI, EACs Clear, TMs Clear Neck: Supple, Trachea Midline, 2 Lungs: Normal Respiratory Effort, Crackles, Rales, Wheezing Cardiovascular: Regular Rate, Regular Rhythm GI/Abdominal Exam: Normal Bowel Sounds, Soft, Non-Tender, No Organomegaly, No Distention, No Abnormal Bruit, No Mass, Pelvis Stable (Female) Exam: Normal External Exam, Normal Speculum Exam, Normal Bimanual Exam Rectal (Female) Exam: Normal Exam, Normal Rectal Tone Back Exam: Normal Inspection, Full Range of Motion, NT Extremities: Normal Inspection, Normal Range of Motion, Non-Tender, No Pedal Edema, Normal Capillary Refill Skin: Warm, Dry, Intact Neurological: Cranial Nerves Intact, Reflexes Equal Bilateral Neuro Extensive - Mental Status: Alert, Oriented x3, Normal Mood/Affect, Normal Cognition Neuro Extensive - Motor, Sensory, Reflexes: CN II-XII Intact, Normal Gait, Normal Reflexes Psychiatric: Alert, Normal Affect, Normal Mood - Patient Data Lab Results Last 24 hrs: Laboratory Results - last 24 hr 02/14/19 02/14/19 02/14/19 Range/Units 23:37 23:37 23:37 WBC 8.1 (5.0-10.0) 10^3/uL RBC 5.08 (4.2-5.4) 10^6/uL Hgb 15.1 (12.0-16.0) g/dL Hct 44.4 (37.0-47.0) % MCV 87.4 (80-100) fL MCH 29.7 (27.0-34.0) pg MCHC 34.0 (33.0-35.0) g/dL Plt Count 251 (150-450) 10^3/uL Neut % (Auto) 52.5 (42.2-75.2) % Lymph % (Auto) 35.8 (20.5-50.1) % [place] % (Auto) 10.0 H (2-8) % Eos % (Auto) 1.6 (1.0-3.0) % Baso % (Auto) 0.1 (0.0-1.0) % Sodium 138 (135-145) mmol/L Potassium 4.1 (3.6-5.0) mmol/L Chloride 105 (101-111) mmol/L Carbon Dioxide 20.0 L (21.0-31.0) mmol/L Anion Gap 17.1 BUN 8 (7-18) mg/dL Creatinine 0.8 (0.6-1.3) mg/dL Est Cr Clr Drug Dosing 92.83 mL/min Estimated GFR (MDRD) > 60 BUN/Creatinine Ratio 10.00 Glucose 118 H (74-105) mg/dL Lactic Acid 2.4 H (0.5-2.2) mmol/L Calcium 9.1 (8.4-10.2) mg/dl Total Bilirubin 0.4 (0.2-1.0) mg/dL AST 32 (10-42) IU/L ALT 18 (10-60) IU/L Alkaline Phosphatase 45 (42-121) IU/L Total Protein 7.7 (6.7-8.2) g/dl Albumin 4.0 (3.2-5.5) g/dl Globulin 3.7 Albumin/Globulin Ratio 1.08 HCG, Qual Urine Color (YELLOW) Urine Appearance (CLEAR) Urine pH (5.0-9.0) Ur Specific [place] (1.005-1.030) Urine Protein (NEGATIVE) Urine Glucose (UA) (NEGATIVE) Urine Ketones (NEGATIVE) Urine Occult Blood (NEGATIVE) Urine Nitrite (NEGATIVE) Urine Bilirubin (NEGATIVE) Urine Urobilinogen (0.2-1.0) mg/dL Ur Leukocyte Esterase (NEGATIVE) Urine RBC /HPF Urine WBC (0-5/HPF) /HPF Ur Epithelial Cells /HPF Amorphous Sediment (0/HPF) /HPF Urine Bacteria (0-FEW/HPF) /HPF Urine Mucus /LPF 02/14/19 02/15/19 Range/Units 23:37 00:14 WBC (5.0-10.0) 10^3/uL RBC (4.2-5.4) 10^6/uL Hgb (12.0-16.0) g/dL Hct (37.0-47.0) % MCV (80-100) fL MCH (27.0-34.0) pg MCHC (33.0-35.0) g/dL Plt Count (150-450) 10^3/uL Neut % (Auto) (42.2-75.2) % Lymph % (Auto) (20.5-50.1) % [place] % (Auto) (2-8) % Eos % (Auto) (1.0-3.0) % Baso % (Auto) (0.0-1.0) % Sodium (135-145) mmol/L Potassium (3.6-5.0) mmol/L Chloride (101-111) mmol/L Carbon Dioxide (21.0-31.0) mmol/L Anion Gap BUN (7-18) mg/dL Creatinine (0.6-1.3) mg/dL Est Cr Clr Drug Dosing mL/min Estimated GFR (MDRD) BUN/Creatinine Ratio Glucose (74-105) mg/dL Lactic Acid (0.5-2.2) mmol/L Calcium (8.4-10.2) mg/dl Total Bilirubin (0.2-1.0) mg/dL AST (10-42) IU/L ALT (10-60) IU/L Alkaline Phosphatase (42-121) IU/L Total Protein (6.7-8.2) g/dl Albumin (3.2-5.5) g/dl Globulin Albumin/Globulin Ratio HCG, Qual Negative Urine Color Yellow (YELLOW) Urine Appearance Clear (CLEAR) Urine pH 6.0 (5.0-9.0) Ur Specific [place] 1.010 (1.005-1.030) Urine Protein Negative (NEGATIVE) Urine Glucose (UA) Negative (NEGATIVE) Urine Ketones Negative (NEGATIVE) Urine Occult Blood Negative (NEGATIVE) Urine Nitrite Negative (NEGATIVE) Urine Bilirubin Negative (NEGATIVE) Urine Urobilinogen 0.2 (0.2-1.0) mg/dL Ur Leukocyte Esterase Negative (NEGATIVE) Urine RBC 0-5 /HPF Urine WBC 5-10 H (0-5/HPF) /HPF Ur Epithelial Cells Rare /HPF Amorphous Sediment Rare (0/HPF) /HPF Urine Bacteria Rare (0-FEW/HPF) /HPF Urine Mucus Rare /LPF Result Diagrams: 02/15/19 06:06 02/14/19 23:37 - Problem List (1) Neurogenic bladder SNOMED Code(s): 360359194 ICD Code: N31.9 - NEUROMUSCULAR DYSFUNCTION OF BLADDER, UNSPECIFIED Status : Acute Current Visit: Yes (2) Asthma exacerbation SNOMED Code(s): 407869184 ICD Code: J45.901 - UNSPECIFIED ASTHMA WITH (ACUTE) EXACERBATION Status: Acute Current Visit: No (3) Pneumonia SNOMED Code(s): 906723696 ICD Code: J18.9 - PNEUMONIA, UNSPECIFIED ORGANISM Status: Acute Current Visit: No Qualifiers: Pneumonia type: due to unspecified organism Laterality: right Lung location: lower lobe of lung Qualified Code(s): J18.1 - Lobar pneumonia, unspecified organism (4) Hyponatremia SNOMED Code(s): 97109217 ICD Code: E87.1 - HYPO-OSMOLALITY AND HYPONATREMIA Status: Acute Current Visit: Yes Problem List Initiated/Reviewed/Updated: Yes Orders Last 24hrs: Active Orders 24 hr Category Date Time Status Patient Status [ADT] Routine ADT 02/15/19 01:28 Ordered Ambulate [RC] ASDIRECTED Care 02/15/19 01:28 Ordered Antiembolic Devices [RC] .Routine Care 02/15/19 01:30 Ordered Intake and Output [RC] QSHIFT Care 02/15/19 01:29 Ordered Notify Provider Vital Signs [RC] ASDIRECTED Care 02/15/19 01:30 Ordered Oxygen Therapy [RC] PRN Care 02/15/19 01:29 Ordered Pulse Oximetry [RC] PRN Care 02/15/19 01:29 Ordered RT Aerosol Therapy [RC] ASDIRECTED Care 02/14/19 23:30 Active RT Aerosol Therapy [RC] ASDIRECTED Care 02/15/19 01:32 Ordered VTE/DVT Education [RC] PER UNIT ROUTINE Care 02/15/19 01:30 Ordered Vital Signs [RC] Q4H Care 02/15/19 01:28 Ordered Regular Diet [DIET] Diet 02/15/19 Breakfast Ordered Chest 1V Frontal [CR] Urgent Exams 02/15/19 00:15 Taken CBC WITH AUTO DIFF [HEME] AM Lab 02/15/19 05:11 Ordered CULTURE BLOOD [BC] Stat Lab 02/14/19 23:37 Received CULTURE BLOOD [BC] Stat Lab 02/15/19 01:33 Stop Req CULTURE BLOOD [BC] Stat Lab 02/15/19 01:33 Stop Req CULTURE SPUTUM + SMEAR [RM] Routine Lab 02/15/19 01:34 Ordered Albuterol/Ipratropium [DuoNeb 3.0-0.5 MG/3 ML] Med 02/15/19 03:00 Ordered 3 ml NEB Q4HRRT Azithromycin [Zithromax] 500 mg Med 02/15/19 01:45 Ordered Sodium Chloride 0.9% [Normal Saline] 250 ml IV Q24H Heparin Sodium Med 02/15/19 01:30 Ordered 5,000 units SUBCUT Q12H cefTRIAXone [Rocephin] 1 gm Med 02/15/19 01:45 Ordered Sodium Chloride 0.9% [Normal Saline] 50 ml IV Q24H methylPREDNISolone Sod Succ [Solu-MEDROL] Med 02/15/19 01:45 Ordered 40 mg IVPUSH Q8H Blood Culture x2 Reflex Set [OM.PC] Stat Oth 02/15/19 01:33 Ordered DVT/VTE Prophylaxis Reflex [OM.PC] Routine Oth 02/15/19 01:28 Ordered Resuscitation Status Routine Resus Stat 02/15/19 01:28 Ordered Medication Orders Albuterol/Ipratropium (Duoneb 3.0-0.5 Mg/3 Ml) 3 ml NEB Q4HRRT PATRICE Heparin Sodium (Porcine) (Heparin Sodium) 5,000 units SUBCUT Q12H PATRICE Azithromycin 500 mg/ Sodium (Chloride) 250 mls @ 250 mls/hr IV Q24H PATRICE Ceftriaxone Sodium 1 gm/ (Sodium Chloride) 50 mls @ 50 mls/hr IV Q24H PATRICE Methylprednisolone Sodium Succinate (Solu-Medrol) 40 mg IVPUSH Q8H PATRICE Assessment/Plan Comment:: Pneumonia- CAP Patient presenting with cough, SOB. Cxr showed infiltrate Admit to general medical floor Monitor vitals Sputum for gram stain and cx Urine for legionella Ag and Strept Ag Blood cx IV ceftriaxone and Azithromycin Supplemental oxygen as needed Acute Asthma exacerbation Duo-Nebs q4h Solu-medrol 40 mg tid Supplemental oxygen as needed Possible sepsis due to Pneumonia - POA She has tachycardia, tachypnea, leukocytosis with infiltrate on cxr Follow culturse as above IV abx Leukocytosis due to pneumonia daily cbc Hyponatremia - mild Follow up with bmp Neurogenic bladder Intermittent self straight catheterization Cerebral palsy No acute issues Regular diet Full code
[2019-02-15] MEDS: Azithromycin 500 MG in Sodium Chloride 0.9% 250 ML IV SCH (01:50)
[2019-02-15] MEDS: Heparin Sodium 5,000 Units/ML Vial SUBCUT SCH ×2 (02:02→12:35)
[2019-02-15] MEDS: cefTRIAXone 1 GM in Sodium Chloride 0.9% 50 ML IV SCH (02:54)
[2019-02-15] MEDS: Albuterol/Ipratropium 3.0-0.5 MG/3 ML Neb Soln NEB SCH ×7 (02:59→23:29)
[2019-02-15] MEDS: methylPREDNISolone Sodium Succinate 40 MG/1 ML SDV IVPUSH SCH ×3 (09:00→23:34)
[2019-02-15] MEDS: Codeine/guaiFENesin 100-10 MG/5 ML Syrup 5 ML Cup PO SCH ×4 (12:51→23:50)
[2019-02-15] MEDS: Albuterol 0.083% 2.5 MG/3 ML Neb Soln NEB PRN (23:45)
[2019-02-16] MEDS: Heparin Sodium 5,000 Units/ML Vial SUBCUT SCH ×2 (00:05→14:53)
[2019-02-16] MEDS: Sodium Chloride 0.9% 10 ML Syringe FLUSH PRN ×4 (00:06→20:26)
[2019-02-16] MEDS: cefTRIAXone 1 GM in Sodium Chloride 0.9% 50 ML IV SCH (00:07)
[2019-02-16] MEDS: Azithromycin 500 MG in Sodium Chloride 0.9% 250 ML IV SCH (00:59)
[2019-02-16] MEDS: Albuterol/Ipratropium 3.0-0.5 MG/3 ML Neb Soln NEB SCH ×6 (03:07→22:48)
[2019-02-16] MEDS: Codeine/guaiFENesin 100-10 MG/5 ML Syrup 5 ML Cup PO SCH ×6 (04:32→20:25)
[2019-02-16] MEDS: Benzonatate 100 MG Cap PO PRN ×3 (08:21→21:16)
[2019-02-16] MEDS: Albuterol 0.083% 2.5 MG/3 ML Neb Soln NEB PRN ×2 (08:23→21:16)
[2019-02-16] MEDS: methylPREDNISolone Sodium Succinate 40 MG/1 ML SDV IVPUSH SCH ×2 (08:23→15:55)
--- NOTE | 2019-02-16 11:29 | PCM.PN ---
- General Info Date of Service: 02/16/19 Admission Dx/Problem (Free Text): Admission Diagnosis/Problem Admission Diagnosis/Problem Pneumonia Subjective Update: Krista is a 23 y/o F with PMH of cerebral palsy, neurogenic bladder, she self cath herself intermittently. She presented to the ER with cough, SOB x 2 days. She was found to have pneumonia. Cxr showed b/l infiltrate. She was seen and examined today. She has episode of asthma exacerbation overnight. She reported tight chest and received 2 rounds of breathing treatment. Her saturation dropped to 90 and she was put on supplemental oxygen via NC. She felt better and saturation improved. This morning she is feeling well. No compliant. She notes mild chest pain with cough. Functional Status: Reports: Pain Controlled - Review of Systems General: Reports: No Symptoms HEENT: Reports: No Symptoms Pulmonary: Reports: No Symptoms Cardiovascular: Reports: No Symptoms Gastrointestinal: Reports: No Symptoms Genitourinary: Reports: No Symptoms Musculoskeletal: Reports: No Symptoms Skin: Reports: No Symptoms Neurological: Reports: No Symptoms Psychiatric: Reports: No Symptoms - Patient Data Vitals - Most Recent: Last Vital Signs Temp 99.0 F 02/16/19 07:26 Pulse 93 02/16/19 07:26 Resp 20 02/16/19 07:26 BP 117/62 02/16/19 07:26 Pulse Ox 97 02/16/19 07:26 Weight - Most Recent: 234 lb 6 oz I&O - Last 24 Hours: Intake & Output 02/15/19 02/16/19 02/16/19 22:59 06:59 14:59 Intake Total 3590 1050 365 Output Total 2225 1000 Balance 1365 50 365 Ace Results Last 24 Hours: Microbiology 02/14/19 23:37 Aerobic Blood Culture - Preliminary Blood NO GROWTH AFTER 1 DAY Anaerobic Blood Culture - Preliminary NO GROWTH AFTER 1 DAY Med Orders - Current: Current Medications Acetaminophen (Tylenol) 650 mg PO Q6H PRN PRN Reason: Pain Albuterol (Proventil Neb Soln) 2.5 mg NEB Q4HRRT PRN PRN Reason: Congestion Last Admin: 02/16/19 08:23 Dose: 2.5 mg Albuterol/Ipratropium (Duoneb 3.0-0.5 Mg/3 Ml) 3 ml NEB Q4HRRT PATRICE Last Admin: 02/16/19 07:24 Dose: 3 ml Benzonatate (Tessalon Perles) 100 mg PO TID PRN PRN Reason: Cough Last Admin: 02/16/19 08:21 Dose: 100 mg Guaifenesin/Codeine Phosphate (Robitussin Ac) 5 ml PO Q4H [facility] Last Admin: 02/16/19 08:22 Dose: 5 ml Heparin Sodium (Porcine) (Heparin Sodium) 5,000 units SUBCUT Q12H [facility] Last Admin: 02/16/19 00:05 Dose: 5,000 units Azithromycin 500 mg/ Sodium (Chloride) 250 mls @ 250 mls/hr IV Q24H [facility] Last Infusion: 02/16/19 02:52 Dose: Infused Ceftriaxone Sodium 1 gm/ (Sodium Chloride) 50 mls @ 50 mls/hr IV Q24H [facility] Last Admin: 02/16/19 00:07 Dose: 50 mls/hr Methylprednisolone Sodium Succinate (Solu-Medrol) 40 mg IVPUSH Q8H [facility] Last Admin: 02/16/19 08:23 Dose: 40 mg Sodium Chloride (Saline Flush) 10 ml FLUSH ASDIRECTED PRN PRN Reason: IV Use Last Admin: 02/16/19 02:51 Dose: 10 ml Discontinued Medications Albuterol/Ipratropium (Duoneb 3.0-0.5 Mg/3 Ml) 3 ml NEB ONETIME ONE Stop: 02/14/19 23:30 Last Admin: 02/14/19 23:39 Dose: 3 ml Methylprednisolone Sodium Succinate (Solu-Medrol) 125 mg IVPUSH ONETIME ONE Stop: 02/14/19 23:30 Last Admin: 02/14/19 23:39 Dose: 125 mg Promethazine HCl/Codeine (Phenergan With Codeine) 5 ml PO ONETIME ONE Stop: 02/14/19 23:32 Last Admin: 02/14/19 23:41 Dose: 5 ml - Exam Quality Assessment: Supplemental Oxygen, DVT Prophylaxis General: Alert, Oriented HEENT: Pupils Equal, Pupils Reactive, EOMI, Mucous Membr. Moist/Fisk Neck: Supple Lungs: Clear to Auscultation, Normal Respiratory Effort Cardiovascular: Regular Rate, Regular Rhythm GI/Abdominal Exam: Normal Bowel Sounds, Soft, Non-Tender, No Organomegaly, No Distention, No Abnormal Bruit, No Mass, Pelvis Stable (Female) Exam: Normal External Exam, Normal Speculum Exam, Normal Bimanual Exam Back Exam: Normal Inspection, Full Range of Motion Extremities: Normal Inspection, Normal Range of Motion, Non-Tender, No Pedal Edema, Normal Capillary Refill Skin: Warm, Dry, Intact Wound/Incisions: Healing Well Neurological: No New Focal Deficit Psy/Mental Status: Alert, Normal Affect, Normal Mood - Problem List & Annotations (1) Neurogenic bladder SNOMED Code(s): 916329700 Code(s): N31.9 - NEUROMUSCULAR DYSFUNCTION OF BLADDER, UNSPECIFIED Status: Acute Current Visit: Yes (2) Asthma exacerbation SNOMED Code(s): 228277890 Code(s): J45.901 - UNSPECIFIED ASTHMA WITH (ACUTE) EXACERBATION Status: Acute Current Visit: No (3) Pneumonia SNOMED Code(s): 608567085 Code(s): J18.9 - PNEUMONIA, UNSPECIFIED ORGANISM Status: Acute Current Visit: No Qualifiers: Pneumonia type: due to unspecified organism Laterality: right Lung location: lower lobe of lung Qualified Code(s): J18.1 - Lobar pneumonia, unspecified organism (4) Hyponatremia SNOMED Code(s): 61149810 Code(s): E87.1 - HYPO-OSMOLALITY AND HYPONATREMIA Status: Acute Current Visit: Yes - Problem List Review Problem List Initiated/Reviewed/Updated: Yes - My Orders Last 24 Hours: My Active Orders 02/15/19 12:18 Benzonatate [Tessalon Perles] 100 mg PO TID PRN 02/15/19 12:30 Codeine/guaiFENesin [Robitussin AC] 5 ml PO Q4H 02/15/19 23:02 Albuterol [Proventil Neb Soln] 2.5 mg NEB Q4HRRT PRN 02/15/19 23:03 RT Aerosol Therapy [RC] ASDIRECTED 02/15/19 23:33 Sodium Chloride 0.9% [Saline Flush] 10 ml FLUSH ASDIRECTED PRN 02/16/19 10:43 Acetaminophen [Tylenol] 650 mg PO Q6H PRN - Plan Plan:: Pneumonia- CAP Yet to give Sputum for gram stain and cx Blood cx NGTD Continue IV ceftriaxone and Azithromycin Continue supplemental oxygen and wean off as tolerated Acute Asthma exacerbation Duo-Nebs q4h Solu-medrol 40 mg tid Supplemental oxygen as needed Possible sepsis due to Pneumonia - POA Resolved Neurogenic bladder Intermittent self straight catheterization Cerebral palsy No acute issues Regular diet Full code
[2019-02-16] MEDS: Acetaminophen 325 MG Tab PO PRN (11:37)
[2019-02-17] MEDS: Codeine/guaiFENesin 100-10 MG/5 ML Syrup 5 ML Cup PO SCH ×4 (00:13→12:39)
[2019-02-17] MEDS: Heparin Sodium 5,000 Units/ML Vial SUBCUT SCH (00:13)
[2019-02-17] MEDS: methylPREDNISolone Sodium Succinate 40 MG/1 ML SDV IVPUSH SCH ×2 (00:16→09:27)
[2019-02-17] MEDS: Sodium Chloride 0.9% 10 ML Syringe FLUSH PRN ×4 (00:16→11:19)
[2019-02-17] MEDS: cefTRIAXone 1 GM in Sodium Chloride 0.9% 50 ML IV SCH (00:17)
[2019-02-17] MEDS: Acetaminophen 325 MG Tab PO PRN ×2 (00:27→09:08)
[2019-02-17] MEDS: Azithromycin 500 MG in Sodium Chloride 0.9% 250 ML IV SCH (01:20)
[2019-02-17] MEDS: Albuterol/Ipratropium 3.0-0.5 MG/3 ML Neb Soln NEB SCH ×3 (03:10→11:27)
[2019-02-17 08:15] VITALS: BP 132/71
--- NOTE | 2019-02-17 10:29 | PCM.DCSUM1 ---
Discharge Summary - Hospital Course HPI Initial Comments: Krista is a 23 y/o F with PMH of cerebral palsy, neurogenic bladder, she self cath intermittently. She presented to the ER with cough, SOB x 2 days. She was found to have pneumonia. Cxr showed b/l infiltrate. She was subsequently admitted. She received IV abx and breathing treatments with improvements. She is being discharge home in a stable condition. Diagnosis: Stroke: No - Discharge Data Discharge Date: 02/17/19 Discharge Disposition: Home, Self-Care 01 Condition: Good - Discharge Diagnosis/Problem(s) (1) Neurogenic bladder SNOMED Code(s): 550804847 ICD Code: N31.9 - NEUROMUSCULAR DYSFUNCTION OF BLADDER, UNSPECIFIED Status : Acute Current Visit: Yes (2) Asthma exacerbation SNOMED Code(s): 854413769 ICD Code: J45.901 - UNSPECIFIED ASTHMA WITH (ACUTE) EXACERBATION Status: Acute Current Visit: No Qualifiers: Asthma severity: mild Asthma persistence: intermittent Qualified Code(s) : J45.21 - Mild intermittent asthma with (acute) exacerbation (3) Pneumonia SNOMED Code(s): 357810131 ICD Code: J18.9 - PNEUMONIA, UNSPECIFIED ORGANISM Status: Acute Current Visit: No Qualifiers: Pneumonia type: due to unspecified organism Laterality: right Lung location: lower lobe of lung Qualified Code(s): J18.1 - Lobar pneumonia, unspecified organism (4) Hyponatremia SNOMED Code(s): 15697582 ICD Code: E87.1 - HYPO-OSMOLALITY AND HYPONATREMIA Status: Acute Current Visit: Yes - Patient Instructions Diet: Regular Diet as Tolerated Activity: As Tolerated Driving: Do Not Drive Showering/Bathing: May Shower Notify Provider of: Fever, Increased Pain, Swelling and Redness, Nausea and/or Vomiting - Discharge Plan *PRESCRIPTION DRUG MONITORING PROGRAM REVIEWED*: Not Applicable *COPY OF PRESCRIPTION DRUG MONITORING REPORT IN PATIENT KYA: Yes Prescriptions/Med Rec: Amoxicillin/Clavulanate K [Augmentin 875-125 MG] 1 tab PO BID 7 Days #14 tablet guaiFENesin 100 mg PO Q6H #1 cup predniSONE [Prednisone] 40 mg PO DAILY #10 tablet Home Medications: Home Meds Acetaminophen [Tylenol Extra Strength] 1,000 mg PO ASDIRECTED PRN 01/03/15 [ History] Albuterol Sulfate 90 mcg IH Q4HR PRN 11/26/16 [History] Amoxicillin/Clavulanate K [Augmentin 875-125 MG] 1 tab PO BID 7 Days #14 tablet 02/17/19 [Rx] guaiFENesin 100 mg PO Q6H #1 cup 02/17/19 [Rx] predniSONE [Prednisone] 40 mg PO DAILY #10 tablet 02/17/19 [Rx] Oxygen Therapy Mode: Room Air Patient Handouts: Amoxicillin; Clavulanic Acid tablets, Guaifenesin oral solution and syrup, Prednisone tablets, Community-Acquired Pneumonia, Adult, [id number] Referrals: Zulema Rogers PA-C [Ordering Only Provider] - - Discharge Summary/Plan Comment DC Time >30 min.: Yes - General Info Date of Service: 02/17/19 Admission Dx/Problem (Free Text: Admission Diagnosis/Problem Admission Diagnosis/Problem Pneumonia Subjective Update: She was seen and examined today. No acute over night event. Functional Status: Reports: Pain Controlled - Review of Systems General: Reports: No Symptoms HEENT: Reports: No Symptoms Pulmonary: Reports: No Symptoms Cardiovascular: Reports: No Symptoms Gastrointestinal: Reports: No Symptoms Genitourinary: Reports: No Symptoms Musculoskeletal: Reports: No Symptoms Skin: Reports: No Symptoms Neurological: Reports: No Symptoms Psychiatric: Reports: No Symptoms - Patient Data Vitals - Most Recent: Last Vital Signs Temp 98.7 F 02/17/19 07:00 Pulse 88 02/17/19 07:00 Resp 20 02/17/19 07:00 BP 132/71 02/17/19 07:00 Pulse Ox 92 L 02/17/19 07:17 Weight - Most Recent: 234 lb 6 oz I&O - Last 24 hours: Intake & Output 02/16/19 02/17/19 02/17/19 22:59 06:59 14:59 Intake Total 6260 1989 Output Total 850 1975 1125 Balance 1510 15 -1125 Lab Results - Last 24 hrs: Laboratory Results - last 24 hr 02/16/19 Range/Units 12:15 WBC 9.3 (5.0-10.0) 10^3/uL RBC 4.66 (4.2-5.4) 10^6/uL Hgb 13.9 (12.0-16.0) g/dL Hct 42.1 (37.0-47.0) % MCV 90.3 (80-100) fL MCH 29.8 (27.0-34.0) pg MCHC 33.0 (33.0-35.0) g/dL Plt Count 258 (150-450) 10^3/uL EDGARDO Results - Last 24 hrs: Microbiology 02/14/19 23:37 Aerobic Blood Culture - Preliminary Blood NO GROWTH AFTER 2 DAYS Anaerobic Blood Culture - Preliminary NO GROWTH AFTER 2 DAYS Med Orders - Current: Current Medications Acetaminophen (Tylenol) 650 mg PO Q6H PRN PRN Reason: Pain Last Admin: 02/17/19 09:08 Dose: 650 mg Albuterol (Proventil Neb Soln) 2.5 mg NEB Q4HRRT PRN PRN Reason: Congestion Last Admin: 02/16/19 21:16 Dose: 2.5 mg Albuterol/Ipratropium (Duoneb 3.0-0.5 Mg/3 Ml) 3 ml NEB Q4HRRT PATRICE Last Admin: 02/17/19 07:16 Dose: 3 ml Benzonatate (Tessalon Perles) 100 mg PO TID PRN PRN Reason: Cough Last Admin: 02/16/19 21:16 Dose: 100 mg Guaifenesin/Codeine Phosphate (Robitussin Ac) 5 ml PO Q4H PATRICE Last Admin: 02/17/19 09:09 Dose: 5 ml Heparin Sodium (Porcine) (Heparin Sodium) 5,000 units SUBCUT Q12H [facility] Last Admin: 02/17/19 00:13 Dose: 5,000 units Azithromycin 500 mg/ Sodium (Chloride) 250 mls @ 250 mls/hr IV Q24H [facility] Last Infusion: 02/17/19 02:24 Dose: Infused Ceftriaxone Sodium 1 gm/ (Sodium Chloride) 50 mls @ 50 mls/hr IV Q24H [facility] Last Admin: 02/17/19 00:17 Dose: 50 mls/hr Methylprednisolone Sodium Succinate (Solu-Medrol) 40 mg IVPUSH Q8H [facility] Last Admin: 02/17/19 09:27 Dose: 40 mg Sodium Chloride (Saline Flush) 10 ml FLUSH ASDIRECTED PRN PRN Reason: IV Use Last Admin: 02/17/19 02:25 Dose: 10 ml Discontinued Medications Albuterol/Ipratropium (Duoneb 3.0-0.5 Mg/3 Ml) 3 ml NEB ONETIME ONE Stop: 02/14/19 23:30 Last Admin: 02/14/19 23:39 Dose: 3 ml Methylprednisolone Sodium Succinate (Solu-Medrol) 125 mg IVPUSH ONETIME ONE Stop: 02/14/19 23:30 Last Admin: 02/14/19 23:39 Dose: 125 mg Promethazine HCl/Codeine (Phenergan With Codeine) 5 ml PO ONETIME ONE Stop: 02/14/19 23:32 Last Admin: 02/14/19 23:41 Dose: 5 ml
== END 2019-02-17 12:35 | disposition home or self-care (01) | DRG 871 ==
LOC: DL.ED 23:18 → DL.MS 02-15 00:59 → UNDOADMOB 02-15 00:59 → DL.MS 02-15 01:28 → OBSVTOIN 02-16 14:30
PROVIDERS: ADMIT Student in an Organized Health Care Education/Training Program; ATTEND Student in an Organized Health Care Education/Training Program
DX: A41.9 Sepsis, unspecified organism (principal); J18.1 Lobar pneumonia, unspecified organism; J45.21 Mild intermittent asthma with (acute) exacerbation; E87.1 Hypo-osmolality and hyponatremia; N31.9 Neuromuscular dysfunction of bladder, unspecified; G80.9 Cerebral palsy, unspecified; H54.7 Unspecified visual loss; Z96.649 Presence of unspecified artificial hip joint; F41.9 Anxiety disorder, unspecified; E61.1 Iron deficiency; Z85.820 Personal history of malignant melanoma of skin; Z90.49 Acquired absence of other specified parts of digestive tract; Z23 Encounter for immunization; Z79.899 Other long term (current) drug therapy; Z79.2 Long term (current) use of antibiotics; Z79.52 Long term (current) use of systemic steroids; Z88.2 Allergy status to sulfonamides; Z88.1 Allergy status to other antibiotic agents; Z88.8 Allergy status to other drugs, medicaments and biological substances; Z91.040 Latex allergy status
CPT/HCPCS: 36415; 71045; 80053; 81001; 83605; 84703; 85025; 85027; 87040; 94640; 96365; 96366; 96367; 96372; 96374; 96375; 96376; 99211; 99284-25; A9270-GY; G0378; J0456; J0696; J1642; J1644; J2920; J2930; J7050; J7613-GY; J7620-GY

== ENCOUNTER 2019-11-05 01:35 | Emergency (ER) | payer MEDICAID ==
--- NOTE | 2019-11-05 01:42 | EDM.PDOC ---
ED HPI GENERAL MEDICAL PROBLEM - General Stated Complaint: TENDERNESS AROUND PORT Time Seen by Provider: 11/05/19 01:42 Source of Information: Reports: Patient History Limitations: Reports: No Limitations - History of Present Illness INITIAL COMMENTS - FREE TEXT/NARRATIVE: ED with c/o pain to right chest around port. noted pus type drainage yesterday. Difficult access with last month flush. Posrt placed 6 years ago. Notes pain and tightness to right side of neck, feeling nauseated today. Right Neck Pain Score (Numeric/FACES): 6 - Related Data Allergies Allergy/AdvReac Type Severity Reaction Status Date / Time erythromycin base Allergy Anaphylactic Verified 11/05/19 01:44 [Erythromycin Base] Shock erythromycin ethylsuccinate Allergy Anaphylactic Verified 11/05/19 01:44 [From Pediazole] Shock latex Allergy Rash Verified 11/05/19 01:44 Sulfa (Sulfonamide Allergy Anaphylactic Verified 11/05/19 01:44 Antibiotics) Shock sulfisoxazole acetyl Allergy Anaphylactic Verified 11/05/19 01:44 [From Pediazole] Shock tape Allergy Rash Uncoded 11/05/19 01:44 Home Meds: Home Meds Acetaminophen [Tylenol Extra Strength] 1,000 mg PO ASDIRECTED PRN 01/03/15 [ History] Albuterol Sulfate 90 mcg IH Q4HR PRN 11/26/16 [History] lamoTRIgine [Lamictal] 100 mg PO ASDIRECTED 09/26/19 [History] Sertraline HCl [Zoloft] 100 mg PO DAILY 11/05/19 [History] Past Medical History HEENT History: Reports: Impaired Vision, Other (See Below) Other HEENT History: wears glasses Cardiovascular History: Reports: None Respiratory History: Reports: Asthma, Bronchitis, Recurrent Gastrointestinal History: Reports: Bowel Obstruction, Gastritis Genitourinary History: Reports: Pyelonephritis, UTI, Recurrent, Other (See Below ) Other Genitourinary History: neurogenic bladder with mitrofenoff procedure [employer]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 Immunologic History: Reports: None Oncologic (Cancer) History: Reports: Other (See Below) Other Oncologic History: Melanoma Dermatologic History: Reports: Melanoma - Infectious Disease History Infectious Disease History: Reports: Chicken Pox, Extended Spectrum Beta- Lactamase (ESBL), Other (See Below) Other Infectious Disease History: E coli bacteremia - Past Surgical History HEENT Surgical History: Reports: Eye Surgery, Myringotomy w Tube(s) GI Surgical History: Reports: Appendectomy, EGD, Other (See Below) Other GI Surgeries/Procedures: Catheter Navel Female Surgical History: Reports: D&C Neurological Surgical History: Reports: None Musculoskeletal Surgical History: Reports: Hip Replacement, Other (See Below) Other Musculoskeletal Surgeries/Procedures:: Multiple hip surgeries Oncologic Surgical History: Reports: None Social & Family History - Family History Family Medical History: Noncontributory Endocrine/Metabolic: Reports: Diabetes, type II Oncologic: Reports: Skin - Caffeine Use Caffeine Use: Reports: Soda Caffeine Use Comment: "maybe once a day" ED ROS GENERAL - Review of Systems Review Of Systems: Comprehensive ROS is negative, except as noted in HPI. ED EXAM, GENERAL - Physical Exam Exam: See Below Exam Limited By: No Limitations General Appearance: Alert, Mild Distress Eye Exam: Bilateral Eye: EOMI Ears: Normal External Exam, Hearing Grossly Normal, Normal TMs Nose: Normal Inspection Throat/Mouth: Normal Inspection, Normal Lips, Normal Voice Head: Atraumatic, Normocephalic Neck: Full Range of Motion, Lymphadenopathy (R) Respiratory/Chest: No Respiratory Distress, Lungs Clear, Other (dry cough, ). No: Chest Non-Tender (right chest wall tenderness around port- a - cath site. Central black dry lesion over port 2mm sub clavicular axillary and cervcial lymphnode swelling and associated tenderness) Cardiovascular: Normal Peripheral Pulses, Regular Rate, Rhythm GI/Abdominal: Normal Bowel Sounds, Soft Extremities: Normal Inspection Neurological: Alert, Oriented, Normal Cognition Psychiatric: Normal Affect Skin Exam: Warm, Dry, Intact, Wound/Incision (right upper chest) Course - Vital Signs Last Recorded V/S: Last Vital Signs Temp 97.9 F 11/05/19 01:38 Pulse 100 11/05/19 01:38 Resp 18 11/05/19 01:38 BP 135/90 11/05/19 01:38 Pulse Ox 100 11/05/19 01:38 - Orders/Labs/Meds Labs: Laboratory Tests 11/05/19 11/05/19 11/05/19 Range/Units 02:31 02:31 02:31 WBC 9.2 (5.0-10.0) 10^3/uL RBC 4.89 (4.2-5.4) 10^6/uL Hgb 14.2 (12.0-16.0) g/dL Hct 41.7 (37.0-47.0) % MCV 85.3 (80-100) fL MCH 29.0 (27.0-34.0) pg MCHC 34.1 (33.0-35.0) g/dL Plt Count 269 (150-450) 10^3/uL Neut % (Auto) 47.9 (42.2-75.2) % Lymph % (Auto) 39.7 (20.5-50.1) % Aiken % (Auto) 10.1 H (2-8) % Eos % (Auto) 2.2 (1.0-3.0) % Baso % (Auto) 0.1 (0.0-1.0) % Sodium 136 (135-145) mmol/L Potassium 4.0 (3.6-5.0) mmol/L Chloride 103 (101-111) mmol/L Carbon Dioxide 23.0 (21.0-31.0) mmol/L Anion Gap 14.0 BUN 8 (7-18) mg/dL Creatinine 0.7 (0.6-1.3) mg/dL Est Cr Clr Drug Dosing 105.17 mL/min Estimated GFR (MDRD) > 60 BUN/Creatinine Ratio 11.42 Glucose 97 (74-105) mg/dL Lactic Acid 1.5 (0.5-2.2) mmol/L Calcium 9.1 (8.4-10.2) mg/dl Total Bilirubin 0.5 (0.2-1.0) mg/dL AST 14 (10-42) IU/L ALT 17 (10-60) IU/L Alkaline Phosphatase 43 (42-121) IU/L Total Protein 7.2 (6.7-8.2) g/dl Albumin 4.2 (3.2-5.5) g/dl Globulin 3.0 Albumin/Globulin Ratio 1.40 HCG, Qual Negative Urine Color (YELLOW) Urine Appearance (CLEAR) Urine pH (5.0-9.0) Ur Specific Wil[place]ham (1.005-1.030) Urine Protein (NEGATIVE) Urine Glucose (UA) (NEGATIVE) Urine Ketones (NEGATIVE) Urine Occult Blood (NEGATIVE) Urine Nitrite (NEGATIVE) Urine Bilirubin (NEGATIVE) Urine Urobilinogen (0.2-1.0) mg/dL Ur Leukocyte Esterase (NEGATIVE) Urine RBC /HPF Urine WBC (0-5/HPF) /HPF Ur Epithelial Cells (NOT SEEN) /HPF Amorphous Sediment (NOT SEEN) /HPF Urine Bacteria (0-FEW/HPF) /HPF Urine Mucus (NOT SEEN) /LPF 11/05/19 Range/Units 03:11 WBC (5.0-10.0) 10^3/uL RBC (4.2-5.4) 10^6/uL Hgb (12.0-16.0) g/dL Hct (37.0-47.0) % MCV (80-100) fL MCH (27.0-34.0) pg MCHC (33.0-35.0) g/dL Plt Count (150-450) 10^3/uL Neut % (Auto) (42.2-75.2) % Lymph % (Auto) (20.5-50.1) % Aiken % (Auto) (2-8) % Eos % (Auto) (1.0-3.0) % Baso % (Auto) (0.0-1.0) % Sodium (135-145) mmol/L Potassium (3.6-5.0) mmol/L Chloride (101-111) mmol/L Carbon Dioxide (21.0-31.0) mmol/L Anion Gap BUN (7-18) mg/dL Creatinine (0.6-1.3) mg/dL Est Cr Clr Drug Dosing mL/min Estimated GFR (MDRD) BUN/Creatinine Ratio Glucose (74-105) mg/dL Lactic Acid (0.5-2.2) mmol/L Calcium (8.4-10.2) mg/dl Total Bilirubin (0.2-1.0) mg/dL AST (10-42) IU/L ALT (10-60) IU/L Alkaline Phosphatase (42-121) IU/L Total Protein (6.7-8.2) g/dl Albumin (3.2-5.5) g/dl Globulin Albumin/Globulin Ratio HCG, Qual Urine Color Yellow (YELLOW) Urine Appearance Slightly cloudy (CLEAR) Urine pH 6.5 (5.0-9.0) Ur Specific [place] 1.010 (1.005-1.030) Urine Protein Negative (NEGATIVE) Urine Glucose (UA) Negative (NEGATIVE) Urine Ketones Negative (NEGATIVE) Urine Occult Blood Trace-intact H (NEGATIVE) Urine Nitrite Negative (NEGATIVE) Urine Bilirubin Negative (NEGATIVE) Urine Urobilinogen 0.2 (0.2-1.0) mg/dL Ur Leukocyte Esterase Negative (NEGATIVE) Urine RBC 0-5 /HPF Urine WBC Not seen (0-5/HPF) /HPF Ur Epithelial Cells Few (NOT SEEN) /HPF Amorphous Sediment Few (NOT SEEN) /HPF Urine Bacteria Rare (0-FEW/HPF) /HPF Urine Mucus Few H (NOT SEEN) /LPF Meds: Medications Discontinued Medications Generic Name Dose Route Start Last Admin Trade Name Freq PRN Reason Stop Dose Admin Vancomycin HCl 1,500 mg/ 250 mls @ 166.667 mls/hr 11/05/19 03:19 11/05/19 04: 13 Sodium Chloride IV 11/05/19 04:48 166.667 mls/hr ONETIME ONE Administration Iopamidol 100 ml 11/05/19 03:22 11/05/19 04:11 Isovue-300 (61%) IVPUSH 11/05/19 03:23 75 ml ONETIME ONE Administration Iopamidol 25 ml 11/05/19 03:23 Isovue-300 (61%) IARTIC 11/05/19 03:24 ONETIME ONE Metoclopramide HCl 10 mg 11/05/19 02:46 11/05/19 02:58 Reglan IVPUSH 11/05/19 02:47 10 mg ONETIME ONE Administration Metoclopramide HCl 10 mg 11/05/19 02:51 11/05/19 02:57 Reglan IM 11/05/19 02:52 Not Given ONETIME ONE Ondansetron HCl 4 mg 11/05/19 02:00 11/05/19 02:25 Zofran IV 11/05/19 02:01 4 mg ONETIME ONE Administration - Re-Assessments/Exams Free Text/Narrative Re-Assessment/Exam: 11/05/19 07:17 [facility], unable to accept to lack of available bed. NIDIA Dietrich [id number]. Dr Raghav Dietrich accepting. 11/05/19 07:22 Departure - Departure Time of Disposition: 09:50 Disposition: DC/Tfer to Acute Hospital 02 Condition: Good Clinical Impression: Infected venous access port Qualifiers: Encounter type: initial encounter Qualified Code(s): T80.219A - Unspecified infection due to central venous catheter, initial encounter - Discharge Information *PRESCRIPTION DRUG MONITORING PROGRAM REVIEWED*: No *COPY OF PRESCRIPTION DRUG MONITORING REPORT IN PATIENT KYA: No Referrals: PCP,None [Primary Care Provider] - Forms: ED Department Discharge Sepsis Event Note - Focused Exam Date Exam was Performed: 11/09/19 Time Exam was Performed: 06:29
[2019-11-05 01:43] VITALS: BP 135/90; PULSE 100
[2019-11-05] MEDS ORDERED: Ondansetron 4 MG/2 ML SDV IV ONE (02:00)
[2019-11-05] MEDS ORDERED: Metoclopramide 10 MG/2 ML SDV IM ONE (02:51)
[2019-11-05] MEDS: Metoclopramide 10 MG/2 ML SDV IVPUSH ONE ×2 (02:52→02:58)
[2019-11-05 03:01] LABS: CHLORIDE,CL 103 mmol/L (101-111); SODIUM,NA 136 mmol/L (135-145)
[2019-11-05] MEDS ORDERED: Iopamidol 612 MG/ML 100 ML Bottle IVPUSH ONE (03:22)
[2019-11-05] MEDS ORDERED: Iopamidol 612 MG/ML 50 ML SDV IARTIC ONE (03:23)
== END 2019-11-05 09:56 ==
LOC: DL.ED 01:35
DX: T80.219A Unspecified infection due to central venous catheter, initial encounter (principal); J45.909 Unspecified asthma, uncomplicated; M19.90 Unspecified osteoarthritis, unspecified site; Z88.1 Allergy status to other antibiotic agents; Z88.2 Allergy status to sulfonamides; Z91.040 Latex allergy status; Z91.09 Other allergy status, other than to drugs and biological substances; Z79.899 Other long term (current) drug therapy; Z96.22 Myringotomy tube(s) status; Z90.49 Acquired absence of other specified parts of digestive tract
CPT/HCPCS: 36415; 71260; 80053; 81001; 83605; 84703; 85025; 87040; 87070; 87077; 87186; 87205; 96365; 96366; 96375; 99284; J2405; J2765; J3370; J7050; Q9967

== ENCOUNTER 2019-11-14 22:58 | Emergency (ER) | payer MEDICAID ==
[2019-11-14 23:09] VITALS: BP 125/79; PULSE 110
--- NOTE | 2019-11-14 23:41 | EDM.PDOC ---
ED HPI GENERAL MEDICAL PROBLEM - General Chief Complaint: Upper Extremity Injury/Pain Stated Complaint: HAS A PICC LINE, PAIN IN SHOULDER/ARM Time Seen by Provider: 11/14/19 23:29 Source of Information: Reports: Patient History Limitations: Reports: No Limitations - History of Present Illness INITIAL COMMENTS - FREE TEXT/NARRATIVE: states had PIC line inserted at [facility] and been getting ABX. today had dressing change 2pm and noticed the line was moving in-out abit bu tit flushed well. then tonight 7pm shoulder started hurting and flushed it and got pain going up and down left arm. Left Upper Arm Pain Score (Numeric/FACES): 5 - Related Data Allergies Allergy/AdvReac Type Severity Reaction Status Date / Time erythromycin base Allergy Anaphylactic Verified 11/14/19 16:37 [Erythromycin Base] Shock erythromycin ethylsuccinate Allergy Anaphylactic Verified 11/14/19 16:37 [From Pediazole] Shock latex Allergy Rash Verified 11/14/19 16:37 Sulfa (Sulfonamide Allergy Anaphylactic Verified 11/14/19 16:37 Antibiotics) Shock sulfisoxazole acetyl Allergy Anaphylactic Verified 11/14/19 16:37 [From Pediazole] Shock tape Allergy Rash Uncoded 11/14/19 16:37 Home Meds: Home Meds Acetaminophen [Tylenol Extra Strength] 1,000 mg PO ASDIRECTED PRN 01/03/15 [ History] Albuterol Sulfate 90 mcg IH Q4HR PRN 11/26/16 [History] lamoTRIgine [Lamictal] 100 mg PO ASDIRECTED 09/26/19 [History] Sertraline HCl [Zoloft] 100 mg PO DAILY 11/05/19 [History] DAPTOmycin [Daptomycin] 617.79 mg IV DAILY 11/14/19 [History] Past Medical History HEENT History: Reports: Impaired Vision, Other (See Below) Other HEENT History: wears glasses Cardiovascular History: Reports: None Respiratory History: Reports: Asthma, Bronchitis, Recurrent Gastrointestinal History: Reports: Bowel Obstruction, Gastritis Genitourinary History: Reports: Pyelonephritis, UTI, Recurrent, Other (See Below ) Other Genitourinary History: neurogenic bladder with mitrofenoff procedure MANAGER LVN History: Reports: , Spontaneous Other MANAGER LVN History: 2 miscarriages Musculoskeletal History: Reports: Arthritis, Osteoarthritis Neurological History: Reports: Cerebral Palsy, Seizure Psychiatric History: Reports: Anxiety, Depression Endocrine/Metabolic History: Reports: None Hematologic History: Reports: Iron Deficiency Other Hematologic History: Antiphospholipid Antibody. Immunologic History: Reports: None Oncologic (Cancer) History: Reports: Other (See Below) Other Oncologic History: Melanoma Dermatologic History: Reports: Melanoma - Infectious Disease History Infectious Disease History: Reports: Other (See Below) Other Infectious Disease History: freq infections- has port for access for antibiotics - Past Surgical History HEENT Surgical History: Reports: Eye Surgery, Myringotomy w Tube(s) GI Surgical History: Reports: Appendectomy, EGD, Other (See Below) Other GI Surgeries/Procedures: Catheter Navel Female Surgical History: Reports: D&C Neurological Surgical History: Reports: None Musculoskeletal Surgical History: Reports: Hip Replacement, Other (See Below) Other Musculoskeletal Surgeries/Procedures:: Multiple hip surgeries Oncologic Surgical History: Reports: None Social & Family History - Family History Family Medical History: Noncontributory Endocrine/Metabolic: Reports: Diabetes, type II Oncologic: Reports: Skin - Caffeine Use Caffeine Use: Reports: Soda Caffeine Use Comment: "maybe once a day" - Recreational Drug Use Recreational Drug Use: No Review of Systems - Review of Systems Review Of Systems: Comprehensive ROS is negative, except as noted in HPI. ED EXAM, GENERAL - Physical Exam Exam: See Below Exam Limited By: No Limitations General Appearance: Alert, WD/WN, Mild Distress, Other (shoulder discomfot) Ears: Hearing Grossly Normal Throat/Mouth: Normal Voice, No Airway Compromise Head: Atraumatic Neck: Non-Tender, Full Range of Motion Respiratory/Chest: No Respiratory Distress Cardiovascular: Regular Rate, Rhythm GI/Abdominal: Soft, Non-Tender Extremities: Other (left arm no s/s cellulitis, PIC line intact) Neurological: Alert, Oriented, Normal Cognition, No Motor/Sensory Deficits Psychiatric: Normal Affect, Normal Mood Skin Exam: Warm, Dry, Normal Color Lymphatic: No Adenopathy Course - Vital Signs Last Recorded V/S: Last Vital Signs Temp 35.7 C 11/14/19 23:07 Pulse 110 H 11/14/19 23:07 Resp 20 11/14/19 23:07 BP 125/79 11/14/19 23:07 Pulse Ox 100 11/14/19 23:07 - Orders/Labs/Meds Orders: Active Orders 24 hr Category Date Time Status Chest 1V Frontal [CR] Urgent Exams 11/15/19 00:10 Taken Labs: Laboratory Tests 11/14/19 11/14/19 11/14/19 Range/Units 23:25 23:25 23:25 WBC 7.1 (5.0-10.0) 10^3/uL RBC 4.90 (4.2-5.4) 10^6/uL Hgb 14.3 (12.0-16.0) g/dL Hct 41.7 (37.0-47.0) % MCV 85.1 (80-100) fL MCH 29.2 (27.0-34.0) pg MCHC 34.3 (33.0-35.0) g/dL Plt Count 271 (150-450) 10^3/uL Neut % (Auto) 39.4 L (42.2-75.2) % Lymph % (Auto) 46.1 (20.5-50.1) % Price % (Auto) 10.3 H (2-8) % Eos % (Auto) 3.9 H (1.0-3.0) % Baso % (Auto) 0.3 (0.0-1.0) % Sodium 134 L (135-145) mmol/L Potassium 3.6 (3.6-5.0) mmol/L Chloride 101 (101-111) mmol/L Carbon Dioxide 22.0 (21.0-31.0) mmol/L Anion Gap 14.6 BUN 8 (7-18) mg/dL Creatinine 0.6 (0.6-1.3) mg/dL Est Cr Clr Drug Dosing 122.69 mL/min Estimated GFR (MDRD) > 60 BUN/Creatinine Ratio 13.33 Glucose 87 (74-105) mg/dL Lactic Acid 1.0 (0.5-2.0) mmol/L Calcium 9.1 (8.4-10.2) mg/dl Total Bilirubin 0.6 (0.2-1.0) mg/dL AST 16 (10-42) IU/L ALT 18 (10-60) IU/L Alkaline Phosphatase 48 (42-121) IU/L Total Protein 7.5 (6.7-8.2) g/dl Albumin 4.3 (3.2-5.5) g/dl Globulin 3.2 Albumin/Globulin Ratio 1.34 - Re-Assessments/Exams Free Text/Narrative Re-Assessment/Exam: 11/15/19 00:[address] Adams @ [facility] who kindly accepted pt for re- eval. Departure - Departure Time of Disposition: 00:36 Disposition: DC/Tfer to [facility] 02 Condition: Good Clinical Impression: Status post peripherally inserted central catheter (PICC) central line placement - Discharge Information Forms: Interfacility Transfer [facility] Sepsis Event Note - Evaluation Sepsis Screening Result: Possible Sepsis Risk - Focused Exam Vital Signs: Vital Signs Temp Pulse Resp BP Pulse Ox 11/14/19 23:07 35.7 C 110 H 20 125/79 100 Date Exam was Performed: 11/15/19 Time Exam was Performed: 00:36 - My Orders Last 24 Hours: My Active Orders 11/15/19 00:10 Chest 1V Frontal [CR] Urgent - Assessment/Plan Last 24 Hours: My Active Orders 11/15/19 00:10 Chest 1V Frontal [CR] Urgent
[2019-11-14 23:48] LABS: ANION GAP 14.6; CHLORIDE,CL 101 mmol/L (101-111); SODIUM,NA 134 mmol/L (135-145)
== END 2019-11-15 01:05 ==
LOC: DL.ED 22:58
DX: Z45.2 Encounter for adjustment and management of vascular access device (principal); F41.9 Anxiety disorder, unspecified; F32.9 Major depressive disorder, single episode, unspecified; Z88.1 Allergy status to other antibiotic agents; Z91.040 Latex allergy status; Z88.2 Allergy status to sulfonamides; Z91.09 Other allergy status, other than to drugs and biological substances; Z79.899 Other long term (current) drug therapy
CPT/HCPCS: 36415; 71045; 80053; 83605; 85025; 99284-25

== ENCOUNTER 2019-12-02 00:21 | Emergency (ER) | payer MEDICAID ==
[2019-12-02 01:52] LABS: ANION GAP 9.8; CHLORIDE,CL 107 mmol/L (101-111); SODIUM,NA 136 mmol/L (135-145)
[2019-12-02 02:24] VITALS: BP 131/71; PULSE 102
--- NOTE | 2019-12-02 02:33 | EDM.PDOC ---
ED HPI GENERAL MEDICAL PROBLEM - General Chief Complaint: General Stated Complaint: BLOOD CLOT? Time Seen by Provider: 12/02/19 02:30 Source of Information: Reports: Patient, Family, RN, RN Notes Reviewed History Limitations: Reports: No Limitations - History of Present Illness INITIAL COMMENTS - FREE TEXT/NARRATIVE: patient presents to ER with complaint of right upper arm pain, swelling and tingling to the lower portion of the right arm. Patient states she had a PICC line in the left arm and developed a DVT. Recently had her port removed due to a staph infection. Patient states she is concerned she has a DVT in the right upper arm. Patient denies any recent heavy lifting. Patient is anticoagulated at this time. Onset: Today Right Middle Shoulder Pain Score (Numeric/FACES): 6 - Related Data Allergies Allergy/AdvReac Type Severity Reaction Status Date / Time erythromycin base Allergy Anaphylactic Verified 12/02/19 02:25 [Erythromycin Base] Shock erythromycin ethylsuccinate Allergy Anaphylactic Verified 12/02/19 02:25 [From Pediazole] Shock latex Allergy Rash Verified 12/02/19 02:25 Sulfa (Sulfonamide Allergy Anaphylactic Verified 12/02/19 02:25 Antibiotics) Shock sulfisoxazole acetyl Allergy Anaphylactic Verified 12/02/19 02:25 [From Pediazole] Shock tape Allergy Rash Uncoded 12/02/19 02:25 Home Meds: Home Meds Acetaminophen [Tylenol Extra Strength] 1,000 mg PO ASDIRECTED PRN 01/03/15 [ History] Albuterol Sulfate 90 mcg IH Q4HR PRN 11/26/16 [History] lamoTRIgine [Lamictal] 100 mg PO ASDIRECTED 09/26/19 [History] Sertraline HCl [Zoloft] 100 mg PO DAILY 11/05/19 [History] Apixaban [Eliquis] 5 mg PO BID 12/02/19 [History] Past Medical History HEENT History: Reports: Impaired Vision, Other (See Below) Other HEENT History: wears glasses Cardiovascular History: Reports: None, Blood Clots/VTE/DVT Respiratory History: Reports: Asthma, Bronchitis, Recurrent Gastrointestinal History: Reports: Bowel Obstruction, Gastritis Genitourinary History: Reports: Pyelonephritis, UTI, Recurrent, Other (See Below ) Other Genitourinary History: neurogenic bladder with mitrofenoff procedure STOVE TENDER History: Reports: , Spontaneous Other STOVE TENDER History: 2 miscarriages Musculoskeletal History: Reports: Arthritis, Osteoarthritis Neurological History: Reports: Cerebral Palsy, Seizure Psychiatric History: Reports: Anxiety, Depression Endocrine/Metabolic History: Reports: None Hematologic History: Reports: Iron Deficiency Other Hematologic History: Antiphospholipid Antibody. Immunologic History: Reports: None Oncologic (Cancer) History: Reports: Other (See Below) Other Oncologic History: Melanoma Dermatologic History: Reports: Melanoma - Infectious Disease History Infectious Disease History: Reports: Other (See Below) Other Infectious Disease History: freq infections- has port for access for antibiotics - Past Surgical History HEENT Surgical History: Reports: Eye Surgery, Myringotomy w Tube(s) GI Surgical History: Reports: Appendectomy, EGD, Other (See Below) Other GI Surgeries/Procedures: Catheter Navel Female Surgical History: Reports: D&C Neurological Surgical History: Reports: None Musculoskeletal Surgical History: Reports: Hip Replacement, Other (See Below) Other Musculoskeletal Surgeries/Procedures:: Multiple hip surgeries Oncologic Surgical History: Reports: None Social & Family History - Family History Family Medical History: Noncontributory Endocrine/Metabolic: Reports: Diabetes, type II Oncologic: Reports: Skin - Tobacco Use Smoking Status *Q: Unknown Ever Smoked Second Hand Smoke Exposure: No - Caffeine Use Caffeine Use: Reports: Soda Caffeine Use Comment: "maybe once a day" - Recreational Drug Use Recreational Drug Use: No ED ROS GENERAL - Review of Systems Review Of Systems: Comprehensive ROS is negative, except as noted in HPI. ED EXAM, GENERAL - Physical Exam Exam: See Below Exam Limited By: No Limitations General Appearance: Alert, WD/WN, No Apparent Distress Eye Exam: Bilateral Eye: EOMI, Normal Inspection Ears: Normal External Exam, Hearing Grossly Normal Nose: Normal Inspection Throat/Mouth: Normal Inspection, Normal Voice, No Airway Compromise Head: Atraumatic, Normocephalic Neck: Normal Inspection, Supple, Non-Tender, Full Range of Motion Respiratory/Chest: No Respiratory Distress, Lungs Clear, Normal Breath Sounds, No Accessory Muscle Use, Chest Non-Tender Cardiovascular: Normal Peripheral Pulses, Regular Rate, Rhythm, No Edema, No Gallop, No JVD, No Murmur, No Rub Peripheral Pulses: 2+: Radial (L), Radial (R) GI/Abdominal: Normal Bowel Sounds, Soft, Non-Tender (Female) Exam: Deferred Rectal (Female) Exam: Deferred Back Exam: Normal Inspection, Full Range of Motion, NT Extremities: Normal Inspection, Normal Range of Motion, Arm Pain (right shoulder /axillary), Redness (mild erythema to the right dorsal forearm), Other (mild swelling to the right dorsal forearm) Neurological: Alert, Oriented, CN II-XII Intact, Normal Cognition, Normal Gait, Normal Reflexes, No Motor/Sensory Deficits Psychiatric: Normal Affect, Normal Mood Skin Exam: Erythema (minimal right dorsal forearm). No: Increased Warmth Lymphatic: No Adenopathy Course - Vital Signs Last Recorded V/S: Last Vital Signs Temp 97.6 F 12/02/19 02:23 Pulse 102 H 12/02/19 02:23 Resp 18 12/02/19 02:23 BP 131/71 12/02/19 02:23 Pulse Ox 99 12/02/19 02:23 - Orders/Labs/Meds Labs: Laboratory Tests 12/02/19 12/02/19 12/02/19 Range/Units 01:16 01:16 01:16 WBC 8.0 (5.0-10.0) 10^3/uL RBC 4.57 (4.2-5.4) 10^6/uL Hgb 13.3 (12.0-16.0) g/dL Hct 39.5 (37.0-47.0) % MCV 86.4 (80-100) fL MCH 29.1 (27.0-34.0) pg MCHC 33.7 (33.0-35.0) g/dL Plt Count 256 (150-450) 10^3/uL Neut % (Auto) 45.8 (42.2-75.2) % Lymph % (Auto) 41.6 (20.5-50.1) % [place] % (Auto) 9.8 H (2-8) % Eos % (Auto) 2.5 (1.0-3.0) % Baso % (Auto) 0.3 (0.0-1.0) % D-Dimer, Quantitative 132 (0-400) ng/mL Sodium 136 (135-145) mmol/L Potassium 3.8 (3.6-5.0) mmol/L Chloride 107 (101-111) mmol/L Carbon Dioxide 23.0 (21.0-31.0) mmol/L Anion Gap 9.8 BUN 8 (7-18) mg/dL Creatinine 0.8 (0.6-1.3) mg/dL Est Cr Clr Drug Dosing TNP Estimated GFR (MDRD) > 60 BUN/Creatinine Ratio 10.00 Glucose 99 (74-105) mg/dL Calcium 8.9 (8.4-10.2) mg/dl Total Bilirubin 0.4 (0.2-1.0) mg/dL AST 16 (10-42) IU/L ALT 20 (10-60) IU/L Alkaline Phosphatase 41 L (42-121) IU/L Total Protein 6.9 (6.7-8.2) g/dl Albumin 4.0 (3.2-5.5) g/dl Globulin 2.9 Albumin/Globulin Ratio 1.38 Departure - Departure Time of Disposition: 02:32 Disposition: Home, Self-Care 01 Condition: Fair Clinical Impression: Pain, arm, right - Discharge Information *PRESCRIPTION DRUG MONITORING PROGRAM REVIEWED*: No *COPY OF PRESCRIPTION DRUG MONITORING REPORT IN PATIENT KYA: No Instructions: Musculoskeletal Pain, Heat Therapy, [id number] Referrals: PCP,None [Ordering Only Provider] - Forms: ED Department Discharge Additional Instructions: May use Tylenol as directed for pain follow-up with your primary care provider Sepsis Event Note - Evaluation Sepsis Screening Result: No Definite Risk - Focused Exam Vital Signs: Vital Signs Temp Pulse Resp BP Pulse Ox 12/02/19 02:23 97.6 F 102 H 18 131/71 99 Date Exam was Performed: 12/02/19 Time Exam was Performed: 04:13
== END 2019-12-02 02:37 | disposition home or self-care (01) ==
LOC: DL.ED 00:21
DX: M79.601 Pain in right arm (principal); F32.9 Major depressive disorder, single episode, unspecified; F41.9 Anxiety disorder, unspecified; Z88.1 Allergy status to other antibiotic agents; Z91.040 Latex allergy status; Z91.048 Other nonmedicinal substance allergy status; Z88.2 Allergy status to sulfonamides; Z79.899 Other long term (current) drug therapy
CPT/HCPCS: 36415; 80053; 85025; 85379; 99283

== ENCOUNTER 2023-11-13 19:39 | Emergency (ER) | payer MEDICAID ==
[2023-11-13 19:52] VITALS: BP 93/75; PULSE 83
[2023-11-13] MEDS ORDERED: Sodium Chloride 0.9% 10 ML Syringe FLUSH PRN (19:52)
[2023-11-13] MEDS ORDERED: Sodium Chloride 0.9% 1,000 ML IV ONE (20:19)
[2023-11-13 20:32] LABS: HEMATOCRIT 38.3 % (37.0-47.0); HEMOGLOBIN 12.9 g/dL (12.0-16.0); LYMPHOCYTES PERCENT AUTO 3.6 % (20.5-50.1); MEAN CORPUSCULAR HEMOGLOBIN 29.3 pg (27.0-34.0); MEAN CORPUSCULAR HGB CONC 33.7 g/dL (33.0-35.0); MEAN CORPUSCULAR VOLUME 86.8 fL (80-100); MONOCYTES PERCENT AUTO 3.9 % (2-8); NEUTROPHILS PERCENT AUTO 92.5 % (42.2-75.2); PLATELET COUNT,PLT 295 10^3/uL (150-450); RED BLOOD CELL COUNT 4.41 10^6/uL (4.2-5.4); WHITE BLOOD CELL COUNT,WBC 22.7 10^3/uL (5.0-10.0)
[2023-11-13 20:45] LABS: INR 0.9 (0.9-1.2); PROTHROMBIN TIME 9.5 SEC (9.0-12.0); PTT,PARTIAL THROMBOPLSTIN TIME 22.3 SEC (22.0-34.0)
[2023-11-13 20:47] LABS: ALANINE AMINOTRANSFERASE,ALT 16 U/L (14-59); ALBUMIN 3.6 g/dL (3.4-5.0); ALKALINE PHOSPHATASE 47 U/L (46-116); ANION GAP 17.4 mEq/L (7-13); ASPARTATE AMNIOTRANSFERASE,AST 9 U/L (15-37); BILIRUBIN TOTAL 0.6 mg/dL (0.2-1.0); BLOOD UREA NITROGEN,BUN 7 mg/dL (7-18); BUN/CREATININE RATIO 6.8 (No establ ref range); CALCIUM 8.6 mg/dL (8.5-10.1); CARBON DIOXIDE,CO2 22 mmol/L (21-32); CHLORIDE,CL 101 mmol/L (98-107); CREATININE 1.03 mg/dL (0.55-1.02); GLUCOSE RANDOM 185 mg/dL (70-99); MAGNESIUM 1.8 mg/dL (1.8-2.4); POTASSIUM,K 4.4 mmol/L (3.5-5.1); PROTEIN TOTAL,TP 7.2 g/dL (6.4-8.2); SODIUM,NA 136 mmol/L (136-145)
[2023-11-13 21:00] LABS: ESTIMATED GFR 75 mL/min (>=60)
[2023-11-13] MEDS ORDERED: fentaNYL 100 MCG/2 ML SDV IVPUSH ONE (21:04)
== END 2023-11-13 22:40 | disposition home or self-care (01) ==
LOC: DL.ED 19:39
DX: L76.22 Postprocedural hemorrhage of skin and subcutaneous tissue following other procedure (principal); J45.909 Unspecified asthma, uncomplicated; Z88.1 Allergy status to other antibiotic agents; Z98.86 Personal history of breast implant removal; Z88.2 Allergy status to sulfonamides; Z91.040 Latex allergy status; Z91.048 Other nonmedicinal substance allergy status; Z79.899 Other long term (current) drug therapy
CPT/HCPCS: 36415; 80053; 83735; 85025; 85610; 85730; 93005; 93010; 96361; 96374; 99284; 99284-25; J3010; J3490; J7030

== ENCOUNTER 2023-12-03 19:56 | Emergency (ER) | payer MEDICAID ==
[2023-12-03 22:16] VITALS: BP 147/75; PULSE 95
== END 2023-12-03 21:09 | disposition home or self-care (01) ==
LOC: DL.ED 19:56
DX: L76.22 Postprocedural hemorrhage of skin and subcutaneous tissue following other procedure (principal); J45.909 Unspecified asthma, uncomplicated; Z79.899 Other long term (current) drug therapy; Z88.1 Allergy status to other antibiotic agents; Z88.2 Allergy status to sulfonamides; Z91.040 Latex allergy status; Z91.048 Other nonmedicinal substance allergy status
CPT/HCPCS: 99283; 99284

== ENCOUNTER 2023-12-08 08:28 | Emergency (ER) | payer MEDICAID ==
[2023-12-08] MEDS: Sodium Chloride 0.9% 1,000 ML IV ONE (09:14)
[2023-12-08] MEDS: diphenhydrAMINE 50 MG/ML SDV IVPUSH ONE (09:15)
[2023-12-08] MEDS: Sodium Chloride 0.9% 10 ML Syringe FLUSH PRN (09:15)
[2023-12-08 09:20] LABS: BASOPHILS PERCENT AUTO 0.1 % (0.0-1.0); EOSINOPHILS PERCENT AUTO 0.8 % (1.0-3.0); HEMOGLOBIN 11.4 g/dL (12.0-16.0); LYMPHOCYTES PERCENT AUTO 22.5 % (20.5-50.1); MEAN CORPUSCULAR HEMOGLOBIN 27.3 pg (27.0-34.0); MEAN CORPUSCULAR HGB CONC 31.7 g/dL (33.0-35.0); MEAN CORPUSCULAR VOLUME 86.1 fL (80-100); MONOCYTES PERCENT AUTO 9.1 % (2-8); NEUTROPHILS PERCENT AUTO 67.5 % (42.2-75.2); PLATELET COUNT,PLT 406 10^3/uL (150-450); RED BLOOD CELL COUNT 4.18 10^6/uL (4.2-5.4); WHITE BLOOD CELL COUNT,WBC 7.3 10^3/uL (5.0-10.0)
[2023-12-08 09:35] LABS: ANION GAP 15.9 mEq/L (7-13); BLOOD UREA NITROGEN,BUN 12 mg/dL (7-18); CALCIUM 8.9 mg/dL (8.5-10.1); CARBON DIOXIDE,CO2 24 mmol/L (21-32); CHLORIDE,CL 106 mmol/L (98-107); CREATININE 0.74 mg/dL (0.55-1.02); GLUCOSE RANDOM 87 mg/dL (70-99); POTASSIUM,K 3.9 mmol/L (3.5-5.1); SODIUM,NA 142 mmol/L (136-145)
[2023-12-08 09:46] LABS: ESTIMATED GFR 112 mL/min (>=60)
[2023-12-08 09:59] VITALS: BP 129/100; PULSE 96
== END 2023-12-08 11:50 | disposition home or self-care (01) ==
LOC: DL.ED 08:28
DX: T81.49XA Infection following a procedure, other surgical site, initial encounter (principal); N61.0 Mastitis without abscess; J45.909 Unspecified asthma, uncomplicated; Z88.1 Allergy status to other antibiotic agents; Z88.2 Allergy status to sulfonamides; Z91.048 Other nonmedicinal substance allergy status; Z88.8 Allergy status to other drugs, medicaments and biological substances; Z79.899 Other long term (current) drug therapy; Z86.16 Personal history of COVID-19; Z90.49 Acquired absence of other specified parts of digestive tract
CPT/HCPCS: 36415; 80048; 83605; 84145; 85025; 87040; 87070; 87077; 87186; 96365; 96366; 96375; 99283-25; 99284; J1200; J3370; J3490; J7030; J7050

== ENCOUNTER 2024-01-09 19:00 | Emergency (ER) | payer MEDICAID | END 2024-01-09 23:59 | LOC: DL.ED 19:00 | DX: L76.82 Other postprocedural complications of skin and subcutaneous tissue (principal); Z88.2 Allergy status to sulfonamides; Z88.1 Allergy status to other antibiotic agents; Z91.048 Other nonmedicinal substance allergy status; Z79.899 Other long term (current) drug therapy | CPT/HCPCS: 99283 ==

== ENCOUNTER 2025-08-13 16:50 | Emergency (ER) | payer SELFPAY ==
[2025-08-13 19:08] VITALS: BP 136/104; PULSE 90
== END 2025-08-13 18:13 | disposition home or self-care (01) ==
LOC: DL.ED 16:50
DX: T85.695A Other mechanical complication of other nervous system device, implant or graft, initial encounter (principal); Z88.1 Allergy status to other antibiotic agents; Z88.2 Allergy status to sulfonamides; Z91.040 Latex allergy status; Z88.8 Allergy status to other drugs, medicaments and biological substances; Z79.899 Other long term (current) drug therapy; Z86.16 Personal history of COVID-19; Z90.49 Acquired absence of other specified parts of digestive tract
CPT/HCPCS: 99283; A9270